=== PATIENT | female | born 2000 | race Caucasian/White ===

== ENCOUNTER 2024-11-29 21:32 | Emergency (ER) | payer MEDICAID, SELFPAY ==
--- NOTE | ~2024-11-29 | US_ITS ---
EXAMINATION: US OB <=14 wk fetus w TV DATE: 11/29/2024 23:49 CDT INDICATION: Cramping and bleeding COMPARISON: None TECHNIQUE: Real-time transabdominal and transvaginal obstetric ultrasound. FINDINGS: 2 para 0 Estimated date of delivery by last menstrual period is 06/29/2025 The uterus measures 8.8 x 4.5 x 7.1 cm. The uterus is retroverted A gestational sac is identified within the uterus. A small subchorionic hemorrhage is identified measuring 8.2 x 3.1 mm. A pole is identified, with a crown-rump length that measures 2.1 cm, corresponding to an approx imate gestational age of 8 weeks and 5 days. cardiac activity is identified at a rate of 185 bpm. The right ovary measures 2.4 x 1.5 x 2.5 cm. Despite prolonged interrogation, the left ovary was not visualized. Free fluid (likely blood) is identified within the lower uterine segment/cervical canal which appears minimally dilated. Estimated date of delivery by ultrasound is 07/07/2025 IMPRESSION: Single intrauterine gestation with an approximate gestational age of 8 weeks and 4 days, with c ardiac activity identified. Free fluid is identified within the cervix, which appears minimally dilated. Reviewed, dictated and finalized at location A. IMPRESSION: Single intrauterine gestation with an approximate gestational age of 8 weeks an d 4 days, with cardiac activity identified. Free fluid is identified within the cervix, which appears minimally dilated.
[2024-11-29 21:44] VITALS: BP 122/80; PULSE 86; RESP 14; TEMP 36.9; O2SAT 100
--- NOTE | 2024-11-29 22:51 | ED_ITS ---
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 She reports she is her last menstrual period was September 22, 2024. Patient was last year and had a miscarriage in June 2024. She reports she has an OBGYN and has had 1 appointment with them. Patient denies any clots, recent fevers, back pain. She endorses blood on the toilet paper when she wipes. Patient denies any other pertinent medical history related to this ER visit. Related Data Allergies Allergy/AdvReac Type Severity Reaction Status Date / Time Latex, Natural Rubber Allergy Intermediate Itching Verified 11/29/24 21:47 Review of Systems 2 Review of Systems: All systems reviewed & are unremarkable except as noted in HPI and below Exam 2 Narrative: GENERAL: Well appearing, well-nourished, non-toxic, in no acute distress. HEAD: Normocephalic, atraumatic. NECK: Supple. No adenopathy, no masses. RESPIRATORY: Airway patent, respirations nonlabored. Clear to auscultation bilaterally, no rales, rhonchi, wheezing. CARDIOVASCULAR: Regular rate and rhythm without murmurs, rubs, or gallops. Peripheral pulses 2+ and equal bilaterally. ABDOMINAL: Soft, nontender, nondistended, no hepatosplenomegaly. Normoactive BS. MUSCULOSKELETAL: Moves all extremities. Strength/ROM intact without gross deformities. SKIN: Warm, dry, normal color. No rashes. NEURO: A&O X3. Speech clear. Cranial nerves II-XII intact. No ataxic movements. PSYCHIATRIC: Appropriate mood and affect. Normal interaction. Course Vital Signs Vital signs: Vital Signs Temperature 36.9 C 11/29/24 21:44 Pulse Rate 86 11/29/24 21:44 Respiratory Rate 14 11/29/24 21:44 Blood Pressure 122/80 11/29/24 21:44 Pulse Oximetry 100 11/29/24 21:44 Oxygen Delivery Room Air 11/29/24 21:44 Temperature 36.9 C 11/29/24 21:44 Pulse Rate 79 11/29/24 23:56 Respiratory Rate 16 11/29/24 23:56 Blood Pressure 131/74 11/29/24 23:56 Pulse Oximetry 99 11/29/24 23:56 Oxygen Delivery Room Air 11/29/24 21:44 MDM - Female Genitourinary MDM Narrative Medical decision making narrative: Patient is a a 24-year-old female who presents to the ER with cramping and light bleeding for the past 2 hours. She reports she is her last menstrual period was September 22, 2024. Patient was last year and had a miscarriage in June 2024. She reports she has an OBGYN and has had 1 appointment with them. Patient denies any clots, recent fevers, back pain. She endorses blood on the toilet paper when she wipes. Patient denies any other pertinent medical history related to this ER visit. Labs Ordered: CBC, CMP, beta HCG, UA Imaging Ordered: Ultrasound Ob < 14 weeks Medications Ordered: 1L normal saline IV bolus, Macrobid PO Results: Patient's urinalysis indicates 1+ blood, 2+ leukocytes, 11-20 white blood cell count Diagnosis: Mild dehydration, urinary tract infection Patient Education/Shared MDM: Results of urinalysis shared with patient. Patient strongly advised to maintain hydration status upon discharge and follow- up with her OBGYN as soon as possible. She will be discharged home with a prescription for Macrobid. Strict return precautions provided. Patient verbalized understanding is in agreement with plan. Vital signs stable at time of discharge. All questions answered. Differential Diagnosis Differential diagnosis: Likely urinary tract infection, vaginitis and other (spontaneous ) Lab Data Attestation: I reviewed the patient's lab results. 11/29/24 23:07 11/29/24 23:07 Labs: Lab Results 11/29/24 11/29/24 Range/Units 23:07 23:14 WBC 10.1 H (4.5-10.0) K/mm3 RBC 4.62 (4.2-5.4) M/mm3 Hgb 13.2 (12.0-15.0) g/dL Hct 38.9 (37.0-47.0) % MCV 84.2 (80-100) fl MCH 28.6 (26-34) pg MCHC 33.9 (32-36) g/dl RDW 13.5 (11.5-14.5) % Plt Count 205 (150-375) k/mm3 MPV 8.9 (7.4-10.4) fl Immature Gran % (Auto) 0.4 (0-0.5) % Neut % (Auto) 64.0 (45.5-73.1) % Lymph % (Auto) 26.0 (18.3-44.2) % [place] % (Auto) 7.9 (2.6-8.5) % Eos % (Auto) 1.3 (0-4.4) % Baso % (Auto) 0.4 (0.2-1.2) % Lymph # (Auto) 2.63 (0.9-3.2) K/mm3 [place] # (Auto) 0.8 H (0.1-0.6) K/mm3 Eos # (Auto) 0.1 (0-0.3) K/mm3 Baso # (Auto) 0.0 (0.0-0.1) K/mm3 Abs Immat Gran (auto) 0.04 H (0.00-0.031) K/mm3 Absolute Neuts (auto) 6.5 (1.3-6.7) K/mm3 Absolute Nucleated RBC 0.000 (0.0-0.012) K/mm3 Nucleated RBC % 0.0 (0.0-0.2) % Sodium 137 (137-145) mmol/L Potassium 4.0 (3.4-5.0) mmol/L Chloride 104 (98-107) mmol/L Carbon Dioxide 23 (22-30) mmol/L Anion Gap 10 (4-12) mmol/L BUN 9 (7-17) mg/dL Creatinine 0.62 L (0.7-1.0) mg/dL Estim Creat Clear Calc 149 ml/min Estimated GFR > 60 (59 - ) Glucose 101 (65-110) mg/dL Calcium 9.6 (8.4-10.2) mg/dL Total Bilirubin 0.1 L (0.2-1.3) mg/dL AST 25 (14-36) U/L ALT 28 (6-35) U/L Alkaline Phosphatase 45 (38-126) U/L Total Protein 8.0 (6.3-8.2) g/dL Albumin 4.5 (3.5-5.1) g/dL Beta HCG, Quant 94247.00 mIU/ML Urine Color Yellow (Yellow) Urine Appearance Clear (Clear) Urine pH 6.0 (5.0-9.0) Ur Specific Gilbert 1.020 (1.001-1.035) Urine Protein Negative (Negative) mg/dL Urine Glucose (UA) Negative (Negative) mg/dL Urine Ketones Negative (Negative) mg/dL Ur Blood (Man) 1+ H (Negative) Urine Nitrate Negative (Negative) Urine Bilirubin Negative (Negative) Urine Urobilinogen 0.2 (<2.0) mg/dL Leukocyte Esterase Rfl 2+ H (Negative) KATELYN/UL Urine RBC 0-2 (0-2) /hpf Urine WBC 11-20 H (0-3) /hpf Ur Squamous Epith Cells None seen (Few) /hpf Urine Bacteria Rare /hpf Urine Casts 0-2 Imaging Data Attestation: I personally reviewed and interpreted this imaging study as follows: Radiologist's impression: Impressions Obstetrics Ultrasound 11/29/24 23:49 IMPRESSION: Single intrauterine gestation with an approximate gestational age of 8 weeks and 4 days, with cardiac activity identified. Free fluid is identified within the cervix, which appears minimally dilated. Discharge Plan Discharge Clinical Impression: UTI (urinary tract infection) in in first trimester, Vaginal bleeding affecting early , Vaginal bleeding in Patient Disposition: Home, Self-Care Condition: Stable Instructions: Antibiotic Form, Urinary Tract Infection in (ED) Additional Instructions: Please return to the ER with any worsening symptoms. Follow-up with your OBGYN as soon as possible. Take all medications as prescribed, including regularly scheduled medications. Complete your full course of antibiotics. Patient Language: Syriac Prescriptions: New nitrofurantoin monohyd/m-cryst [Macrobid] 100 mg capsule 100 mg PO Q12H 5 Days Qty: 10 0RF Rx Instructions: must administer with a meal/food Follow-up/Referrals: Evan Yost MD [Primary Care Provider] - Time of Disposition: 00:49
[2024-11-29 23:12] LABS: Basophils Percent Auto 0.4 % (0.2-1.2); Eosinophils Absolute Auto 0.1 K/mm3 (0-0.3); Eosinophils Percent Auto 1.3 % (0-4.4); Hematocrit 38.9 % (37.0-47.0); Hemoglobin 13.2 g/dL (12.0-15.0); Immature Granulocyte Absolute 0.04 K/mm3 (0.00-0.031); Immature Granulocyte Percent A 0.4 % (0-0.5); Lymphocytes Absolute Auto 2.63 K/mm3 (0.9-3.2); Mean Corpuscular HGB Conc 33.9 g/dl (32-36); Mean Corpuscular Hemoglobin 28.6 pg (26-34); Mean Corpuscular Volume 84.2 fl (80-100); Mean Platelet Volume 8.9 fl (7.4-10.4); Monocytes Absolute Auto 0.8 K/mm3 (0.1-0.6); Monocytes Percent Auto 7.9 % (2.6-8.5); Neutrophils Absolute Auto 6.5 K/mm3 (1.3-6.7); Platelet Count Result 205 k/mm3 (150-375); Red Blood Count 4.62 M/mm3 (4.2-5.4); Red Cell Distribution Width 13.5 % (11.5-14.5); White Blood Count 10.1 K/mm3 (4.5-10.0)
[2024-11-29] MEDS: SODIUM CHLORIDE 0.9% IV 1,000 ML 999 ML IV CONT (23:16)
[2024-11-29 23:22] LABS: Alanine Aminotransferase 28 U/L (6-35); Albumin Level 4.5 g/dL (3.5-5.1); Alkaline Phosphatase 45 U/L (38-126); Anion Gap 10 mmol/L (4-12); Aspartate Amino Transferase 25 U/L (14-36); Bilirubin,Total 0.1 mg/dL (0.2-1.3); Blood Urea Nitrogen 9 mg/dL (7-17); Calcium 9.6 mg/dL (8.4-10.2); Carbon Dioxide 23 mmol/L (22-30); Chloride 104 mmol/L (98-107); Estimated CRCL calculation 149 ml/min; Estimated Glomerular Filt Rate > 60; Glucose 101 mg/dL (65-110); Sodium 137 mmol/L (137-145)
[2024-11-29 23:28] LABS: Add Urine Microscopic? YES; Appearance Urine Clear (Clear); Bacteria Urine Rare /hpf; Bilirubin Urine Negative (Negative); Blood Urine 1+ (Negative); Color Urine Yellow (Yellow); Glucose Urine UA Negative (Negative); Ketones Urine Negative (Negative); Leukocyte Esterase Ur 2+ LEU/UL (Negative); Nitrate Urine Negative (Negative); Non Pathogenic Casts 0-2; Protein Urine Negative (Negative); RBC Urine 0-2 /hpf (0-2); Squamous Epithelial Cell Urine None Seen /hpf (Few); Urobilinogen Urine 0.2 mg/dL (<2.0)
[2024-11-29 23:56] VITALS: BP 131/74; PULSE 79; RESP 16; O2SAT 99
[2024-11-30] MEDS: NITROFURANTOIN MONOHYD MACROCR 100 MG CAP PO (00:04)
--- OUTSIDE RECORDS SUMMARY | 2024-11-30 00:13 | XMS_ITS | Data Portability ---
Author Organization [facility] [place] Address [address] [place] [address] Assessment No assessment recorded. Plan of Treatment Reminders Order Date Submit Date Provider Last Modified By Organization Details Last Modified Time Details Appointments U/S OB FIRST LOOK 2024 08:30A M ULTRASOUND Not available Not available Not available OB NEW 2024 09:00A M YOLANDE CONNORS MD Not available Not available Not available Lab CT + NG + TV, RNA, unspeci fied specime n 2024 025 [facility] (Lab), [address], [place], [address], 11/20/2024 13:39:51 Referral None recorde d. Procedures None recorde d. Surgeries None recorde d. Imaging US, obstetr ic, transva ginal 2024 025 [email or web address] [place], [facility] [address], [place], [address], 11/19/2024 22:06:14 Medication Orders None recorde d. Patient TargetsNo targets recorded. Patient InstructionsNo instructions recorded. Reason for Referral None Reported. Results Created Date Observation Date Name Description Value Unit Range Abnormal Flag Note LastModifiedBy Organization Detail LastModifiedTime 11/20/1911/19/2024 CT/GC AND TRICH OMONA S VAGIN GERRY (RRNA ), URINE chlamydia trachomatis, PCR Negati ve negati ve Not Available [facility] (Lab) [address], [place], [address], 11/20/2024 13:39:51 11/20/19 25 11/19/2024 CT/GC AND TRICH OMONA S VAGIN GERRY (RRNA ), URINE neisseria gonorrhoeae, PCR Negati ve negati ve Not Available [facility] (Lab) [address] [place], [address], 11/20/2024 13:39:51 11/20/19 25 11/19/2024 CT/GC AND TRICH OMONA S VAGIN GERRY (RRNA ), URINE trichomonas vaginalis ribosomal RNA (rrna) Negati ve negati ve Not Available [facility] (Lab) [address] [place], [address], 11/20/2024 13:39:51 11/20/19 25 11/19/2024 US, obste tric, trans vagin al No observ ation record ed. [email or web address], [place], [address], 11/19/2024 17:59:53 11/20/1911/19/2024 US, obste tric, trans vagin al No observ ation record ed. [email or web address], [place], [address], 11/19/2024 21:53:26 Result Notes None recorded. Procedures Surgical History Date Name Laterality Status Provider Name and Address Organization Details Recorded Time 07/03/2024 Date of Last Pap Smear completed Yoli Mckeon [facility] 11/19/2024 13:53:21 Imaging Results Imaging Date Name Status LastModified by Organization Details LastModified Time 11/19/2024 US, obstetric, transvaginal completed [email or web address] [place] [address], [place], [address], 11/19/2024 17:59:53 11/19/2024 US, obstetric, transvaginal completed [email or web address], [place], [address], 11/19/2024 21:53:26 Procedure Notes None recorded. Medical Equipment None Reported. Allergies Allergen ID Allergen Name Allergen Category Reaction Reaction Severity Criticality Documentation Date Start Date Code Code System Note Provider Name and Address Organization Details Recorded Time 99616 latex environme nt,medica tion Not available Not available Not available 11/19/2024 35993 91 RxNorm [facility]33 Medications Name Sig Start Date Stop Date Status Note LastModified by Organization Details LastModified Time cephalexin 500 mg capsule TAKE 1 CAPSULE BY MOUTH TWICE DAILY FOR 7 DAYS FOR UTI 11/19 completed Not Available Not Available Not Available 28 mg iron-800 mcg tablet TAKE 1 TABLET BY MOUTH EVERY NIGHT FOR 11/19 completed Not Available Not Available Not Available WesTab Plus 27 mg iron-1 mg tablet TAKE 1 TABLET BY MOUTH DAILY 11/19 completed Not Available Not Available Not Available Vitals Date Recorded Body weight Body mass index (BMI) Body height Systolic blood pressure Diastolic blood pressure Provider Name and Address Organization Details Last Updated DateTime 11/19/2024 809326.1 7 g 41.2 kg/m2 162.56 cm 124 mm[Hg] 75 mm[Hg] Yoil Mckeon [facility] 14:39:19 Social History Question Answer Notes LastModified by Organizat ion Details LastModified Time Tobacco Smoking Status Never Smoker [facility] 11/19/2024 14:41:49 Are You Blind Or Do You Have Difficulty Seeing? No [email or web address] Information n ot available 11/19/2024 In The 14 Days Before Symptom Onset, Have You Had Close Contact With A Laboratory-confirm ed COVID-19 While That Case Was Ill? No [email or web address] Information n ot available 11/19/2024 In The 14 Days Before Symptom Onset, Have You Had Close Contact With A Person Who Is Under Investigation For COVID-19 While That Person Was Ill? No Information not available 11/19/2024 Have You Been To An Area Known To Be High Risk For COVID-19? No [email or web address] Information not available 11/19/2024 Are You Deaf Or Do You Have Serious Difficulty Hearing? No [email or web address] Information not available 11/19/2024 Do You Use Your Seat Belt Or Car Seat Routinely? Yes [email or web address] Information not available 11/19/2024 Are You Sexually Active? Yes Information not available 11/19/2024 Do You Have Smoke And Carbon Monoxide Detectors In Your Home? Yes Information not available 11/19/2024 Do You Use Any Illicit Or Recreational Drugs? No [email or web address] Information not available 11/19/2024 Do You Use Sunscreen Routinely? Yes [email or web address] Information not available 11/19/2024 Sex: Unknown Functional Status Question Answer Note LastModified by Organizat ion Details LastModified Time Do you have difficulty walking or climbing stairs? No Information not available 11/19/2024 Are you able to walk? YESWOREST [email or web address] Information not available 11/19/2024 Are you able to care for yourself? Yes Information not available 11/19/2024 Do you have difficulty dressing or bathing? No [email or web address] Information not available 11/19/2024 Mental Status None recorded. Family History Relationship Description Onset Age of this Age Resolved Age Notes LastModified by Organization Details LastModified Time Maternal Grandmother Heart disease [email or web address] Not available 2024 13:54:29 Father Diabetes mellitus Not available 2024 13:54:46 Father Hypercholest erolemia [email or web address] Not available 2024 13:55:18 Father Hypertensive disorder [email or web address] Not available 2024 13:55:35 Brother Hypercholest erolemia Not available 2024 13:55:18 Brother Hypertensive disorder [email or web address] Not available 2024 13:55:35 Mother Hypercholest erolemia Not available 2024 13:55:18 Mother Hypertensive disorder [email or web address] Not available 2024 13:55:35 Mother Disorder of thyroid gland [email or web address] Not available 2024 13:55:55 Medical History No medical history recorded. Gynecological History Statement/Question Response Abnormal Pap N Flow Moderate Date of LMP 09/22/2024 Was last menstrual period normal Y STIs/STDs N HPV Vaccine Y Duration of Flow (days) 5 Are cycles usually normal Y Frequency of Cycle (Q days) 28 Sexually Active? Y Menses Monthly Y Age of first menstrual cycle 13 Date of Last Pap Smear 07/03/2024 Sexual Problems? N LMP Approximate Obstetrics History GPAL:G 1 P 0 0 1 0 Type Value Spontaneous 1 Total 1 Past Encounters Encounter ID Performer Location Encounter Start Date Encounter Closed Date Diagnosis/Indication Diagnosis SNOMED-CT Code Diagnosis ICD10 Code Diagnosis Note [id number] Opal Miranda [place] [address] [address] 11/19/2024 13:30:15 11/19/2024 14:37:29 Uterine size for dates discrepancy 221635606 O26.841 Z3A.01 [id number] YOLANDE CONNORS MD [place] [address] [address] 11/19/2024 13:34:02 11/19/2024 15:47:57 Routine care 736160513 Z34.91 test positive 925337053 Z32.01 1. Exam today within normal limits.2. Ultrasound today confirms GA and viability. EDC . JEFFERSON/Jose a testing done: will f/u as indicated. 4. ACOG guidelines and plan of care for reviewed with patient. All questions answered.5 . Return to office at 12 weeks for new OB visit6. Will need new OB labs at next visit.7. Genetic screening: desires. Vanishing twin syndrome 079160651 O31.10X0 - possible empty second gestationa l sac seen on US today- discussed possibilit y of vanishing twin; no FP seen- patient voices understand ing Health Concerns Section Related Observation LastModified by Organization Detai ls LastModified Time None Recorded Concern Status LastModified by Organization Details LastModified Time None Recorded Advance Directives Directive None Recorded Payers Encounter Date Sequence Insurance Name Policy Number Policy Langley Covered Member ID Langley Member ID Guarantor Name 11/19/2024 1 [place] [employer] Jaquelin Parker [id number] Jaquelin Parker 11/19/2024 1 [place] [employer] Jaquelin Parker [id number] Jaquelin Parker Notes Date Note Type Note Provider Name and Address Organization Details Recorded Time 11/19/2024 text/html Presents to the office today to confirm . Patient denies any problems up to this point with her . Patient denies cramping or vaginal bleeding. No nausea. No PMH/PSH. Hx of miscarriage x1 at 12 weeks, passed spontaneously. Patient is engaged to Ariel. Lives with mom and dogs, cats, lizards and ferrets. Discussed litter box hygiene. Denies tobacco/EtOH/illi cits. YOLANDE CONNORS MD [address], [place], [address], [facility] 11/19/2024 15:44:12 OBGyn Episode Ob Episode Information Episode Created Date Number of Fetuses Patient Bloodtype Patient rh Status Prepregnancy Weight lbs Domestic Partner Domestic Partner Phone Father Name Patent Chemist Status 11/20/19 25 1 CLOSED Fetus Data First Name Last Name Admitted to NICU Weight (g) Sex Living Outcome Pediatric Complications Fetus ID Race Codes Race Delivery Type , Spontane ous [id number] Serge Calculation Initial Serge Date Initial Exam Date Initial Exam Provider Initial Ultrasound Date Last Menstrual Period Date Ultra Sound Weeks Gestation 0 Eighteen To Twenty Week Serge Update Ultra Sound Date Fundal Height At Umbil Quickening Date Ultra Sound Latest Weeks Gestation Final Serge Confirmed By Final Serge Confirmed Date Final Serge Date Ultra Sound Latest Days Gestation 0 0 Menstrual History Last Menstrual Date Menses Monthly On Bcp Conception Prior Menses Frequency Hcg Plus Date Menarche Onset Age Delivery Information Delivery Date Delivery Type Labor Anesthesia Weeks Gestation Incision Type Labor Labor Length Hrs Delivered By Post Complications Tubal Sterilization Discharge Date Comments 4 Discharge Information Feeding Method Contraceptive Method Maternal HG B and HCT Levels
--- OUTSIDE RECORDS SUMMARY | 2024-11-30 00:13 | XMS_ITS | Referral Summary ---
Author Organization [facility] Address [address] [place] [address] Care Team Providers Care Marble Setter Name Role Phone Miscellaneous, Not In File Primary Care Provider Unavailable Allergies No known active allergies Medications No known medications Social History Tobacco Use Types Packs/Day Years Used Date Smoking Tobacco: Never Tobacco Cessation:Counseling Given: Not Answered Personal Safety Answer Date Recorded Have you ever been in or are you currently in a harmful physical or emotional relationship or is someone making you feel afraid or unsafe? Denies 07/05/2024 Estimated Date of Delivery Comme nts Yes 01/20/2025 Sex and Gender Information Value Date Recorded Sex Assigned at Not on file Legal Sex Female 9:45 PM CDT Gender Identity Not on file Sexual Orientation Not on file Last Filed Vital Signs Vital Sign Reading Time Taken Comments Blood Pressure 109/70 07/05/2024 7:20 AM CDT Pulse 82 07/05/2024 7:20 AM CDT Temperature 36.1 C (96.9 F) 07/05/2024 7:20 AM CDT Respiratory Rate 18 07/05/2024 7:20 AM CDT Oxygen Saturation 100% 07/05/2024 7:20 AM CDT Inhaled Oxygen Concentration - - Weight 108 kg (238 lb) 07/05/2024 7:20 AM CDT Height 172.7 cm (5' 8 ) 07/05/2024 7:20 AM CDT Body Mass Index 36.19 07/05/2024 7:20 AM CDT Plan of Treatment Not on file Care Teams Marble Setter Relationship Specialty Start Date End Date Miscellaneous, Not In File PCP - General 07/04/24
--- OUTSIDE RECORDS SUMMARY | 2024-11-30 00:13 | XMS_ITS | Data Portability ---
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 Jaquelin has long hx of irregular periods and was seen approximately 3 months prior for evaluation. OCP was started with no other reported side effects other than spotting. Spotting with no regular pattern. Additionally on visit today patient's blood pressure elevated x 2. - previous labs reviewed; will add testerone, a1c, CMP, CBC and lipid - anticipatory guidance and education provided - recommend diet modification and increased physical activity - will continue to monitor spotting as patient has only had 3 months of current OCP; will reassess at month 6 approx - follow-up pending labs, in 2-3 months or prn [email or web address] Not available 09/15/2021 09:54:29 Plan of Treatment Reminders Order Date Submit Date Provider Last Modified By Organization Details Last Modified Time Details Appointments None recorded. Lab panel 2023 024 [facility], [address] [facility] [address], [place], [address], 14:37:45 varicella zoster virus IgG Ab, QL, IA, serum 2023 024 [facility], [address] [facility], [facility] [address], [place], [address], 4 14:37:50 vitamin D, 25-hydrox y, total, serum 2023 024 [facility], [address] [place] [address], [facility], [place], [address], 4 14:37:49 cytology report, thin prep, smear or scraping, cervical or vaginal 2023 024 [facility], [address] [place] [address], [facility] [address], [place], [address], 4 18:35:51 CBC 2021 022 [facility], [address] [place] [address], [facility] [address], [place], [address], 2 20:35:57 lipid panel, serum 2021 022 [facility], [address] [place] [address], [facility] [address], [place], [address], 2 20:35:57 CMP, serum or plasma 2021 022 [facility], [address] [place] [address], [facility], [place], [address], 2 20:35:56 testoster one, free + total, serum 2021 022 [facility], [address] [place] [address], [facility], [place], [address], 2 20:35:58 prolactin , serum 2020 021 [facility], [address] [place] [address], [facility] [address], [place], [address], 1 08:38:23 TSH, ultra-sen sitive, serum 2020 021 [facility], [address] [place] [address], [facility] [address], [place], [address], 1 08:38:22 FSH (follicle -stimulat ing hormone), serum 2020 021 [place], [address] [facility] [address], [place], [address], 1 08:38:23 Referral pharmacis t referral - OB patient - [facility] program 2023 024 Claudette Martin MD, 4 [facility] , [address], [place], [address], 4 18:00:26 Procedures None recorded. Surgeries None recorded. Imaging None recorded. Medication Orders Twirla 120 mcg-30 mcg/24 hr transderm al patch 2023 [facility][id number], [address], [place], [place], [id number], 4 14:29:55 M- Plus 27 mg iron-1 mg tablet 2023 024 [facility] #[id number], [address], [place], [place], [id number], 4 14:29:54 Junel FE 09/30 (28) 1 mg-20 mcg (21)/75 mg (7) tablet 2020 021 [facility] #[id number], [address], [place], [place], [id number], 4 11:04:29 Patient TargetsNo targets recorded. Patient InstructionsNo instructions recorded. Reason for Referral Pharmacist Referral for Rout ine care OB patient - [facility] program Referring Physician: Paulina King, Family Medicine, Encounter Date: 07/03/2024 Results Created Date Observation Date Name Description Value Unit Range Abnormal Flag Note LastModifiedBy Organization Detail LastModifiedTime 05/27/20 21 05/28/2021 TSH TSH 2.330 uIU/m L 0.450- 4.500 Not Available [facility] ([facility]) [address] [place], [address], 05/28/2021 08:38:22 05/27/20 21 05/28/2021 FSH FSH 7.9 mIU/m L Adult Femal e: Folli cular phase 3.5 - 12.5 Ovula tion phase 4.7 - 21.5 Lutea l phase 1.7 - 7.7 Postm enopa usal 25.8 - 134.8 Not Available [facility] ([facility]) [address] [place], [address], 05/28/2021 08:38:23 05/27/20 21 05/28/2021 PROLA CTIN prolactin 7.4 NG/mL 4.8-23 .3 Not Available [facility] ([facility]) [address] [place], [address], 05/28/2021 08:38:23 09/15/19 22 09/16/2021 COMP. METAB OLIC PANEL (14) glucose 110 mg/dL 65-99 above high normal Not Available [facility] ([facility]) [address] [place], [address], 09/17/2021 20:35:56 09/15/19 22 09/16/2021 COMP. METAB OLIC PANEL (14) BUN 8 mg/dL 6-20 Not Available [facility] ([facility]) [address] [place], [address], 09/17/2021 20:35:56 09/15/19 22 09/16/2021 COMP. METAB OLIC PANEL (14) creatinine 0.71 mg/dL 0.57-1 .00 Not Available [facility] ([facility]) [address] [place], [address], 09/17/2021 20:35:56 09/15/19 22 09/16/2021 COMP. METAB OLIC PANEL (14) eGFR if nonafricn AM 123 mL/mi n/1.7 3 >59 Not Available [facility] ([facility]) [address] [facility], [place], [address], 09/17/2021 20:35:56 09/15/19 22 09/16/2021 COMP. METAB OLIC PANEL (14) eGFR if africn AM 142 mL/mi n/1.7 3 >59 In accor dance with recom menda tions from the NKF-A SN Task force , [facility] is in the proce ss of updat ing its eGFR calcu latio n to the 2020 CKD-E PI creat inine equat ion that estim ates kidne y funct ion witho ut a race varia ble. Not Available [facility] ([facility]) [address] [facility], [place], [address], 09/17/2021 20:35:56 09/15/19 22 09/16/2021 COMP. METAB OLIC PANEL (14) BUN/creatini ne ratio 11 9-23 Not Available [facility] ([facility]) [address] [facility], [place], [address], 09/17/2021 20:35:56 09/15/19 22 09/16/2021 COMP. METAB OLIC PANEL (14) sodium 141 mmol/ L 134-14 4 Not Available [facility] ([facility]) [address] [place], [address], 09/17/2021 20:35:56 09/15/19 22 09/16/2021 COMP. METAB OLIC PANEL (14) potassium 4.3 mmol/ L 3.5-5. 2 Not Available [facility] ([facility]) [address] [place], [address], 09/17/2021 20:35:56 09/15/19 22 09/16/2021 COMP. METAB OLIC PANEL (14) chloride 103 mmol/ L 96-106 Not Available [facility] ([facility] [facility]) [address] [facility], [place], [address], 09/17/2021 20:35:56 09/15/19 22 09/16/2021 COMP. METAB OLIC PANEL (14) carbon dioxide, total 21 mmol/ L 20-29 Not Available [facility] ([facility]) [address] [facility], [place], [address], 09/17/2021 20:35:56 09/15/19 22 09/16/2021 COMP. METAB OLIC PANEL (14) calcium 9.7 mg/dL 8.7-10 .2 Not Available [facility] ([facility]) [address] [facility], [place], [address], 09/17/2021 20:35:56 09/15/19 22 09/16/2021 COMP. METAB OLIC PANEL (14) protein, total 7.5 g/dL 6.0-8. 5 Not Available [facility] ([facility]) [address] [facility], [place], [address], 09/17/2021 20:35:56 09/15/19 22 09/16/2021 COMP. METAB OLIC PANEL (14) albumin 4.8 g/dL 3.9-5. 0 Not Available [facility] ([facility]) [address] [facility] [place] [place], [address], 09/17/2021 20:35:56 09/15/19 22 09/16/2021 COMP. METAB OLIC PANEL (14) globulin, total 2.7 g/dL 1.5-4. 5 Not Available [facility] ([facility]) [address] [facility] [place] [place], [address], 09/17/2021 20:35:56 09/15/19 22 09/16/2021 COMP. METAB OLIC PANEL (14) A/G ratio 1.8 1.2-2. 2 Not Available [facility] ([facility]) [address] [facility], [place], [address], 09/17/2021 20:35:56 09/15/19 22 09/16/2021 COMP. METAB OLIC PANEL (14) bilirubin, total <0.2 mg/dL 0.0-1. 2 Not Available [facility] ([facility]) [address], [place], [address], 09/17/2021 20:35:56 09/15/19 22 09/16/2021 COMP. METAB OLIC PANEL (14) alkaline phosphatase 51 IU/L 42-106 Ple ase note refer ence inter sunil trinh e Not Available [facility] ([facility]) [address] [facility], [place], [address], 09/17/2021 20:35:56 09/15/19 22 09/16/2021 COMP. METAB OLIC PANEL (14) AST (SGOT) 51 IU/L 0-40 above high normal Not Available [facility] ([facility]) [address] [facility], [place], [address], 09/17/2021 20:35:56 09/15/19 22 09/16/2021 COMP. METAB OLIC PANEL (14) ALT (SGPT) 75 IU/L 0-32 above high normal Not Available [facility] ([facility]) [address] [facility], [place], [address], 09/17/2021 20:35:56 09/15/19 22 09/16/2021 CBC, PLATE LET, NO DIFFE RENTI AL WBC 6.1 x10e3 /uL 3.4-10 .8 Not Available [facility] ([facility]) [address] [facility], [place], [address], 09/17/2021 20:35:56 09/15/19 22 09/16/2021 CBC, PLATE LET, NO DIFFE RENTI AL RBC 5.21 x10e6 /uL 3.77-5 .28 Not Available [facility] ([facility]) [address] [facility], [place], [address], 09/17/2021 20:35:56 09/15/19 22 09/16/2021 CBC, PLATE LET, NO DIFFE RENTI AL hemoglobin 14.4 g/dL 11.1-1 5.9 Not Available [facility] ([facility]) [address] [facility], [place], [address], 09/17/2021 20:35:56 09/15/19 22 09/16/2021 CBC, PLATE LET, NO DIFFE RENTI AL hematocrit 43.9 % 34.0-4 6.6 Not Available [facility] ([facility]) [address] [facility], [place], [address], 09/17/2021 20:35:56 09/15/19 22 09/16/2021 CBC, PLATE LET, NO DIFFE RENTI AL MCV 84 fL 79-97 Not Available [facility] ([facility]) [address] [facility], [place], [address], 09/17/2021 20:35:56 09/15/19 22 09/16/2021 CBC, PLATE LET, NO DIFFE RENTI AL MCH 27.6 pg 26.6-3 3.0 Not Available [facility] ([facility]) [address] [facility], [place], [address], 09/17/2021 20:35:56 09/15/19 22 09/16/2021 CBC, PLATE LET, NO DIFFE RENTI AL MCHC 32.8 g/dL 31.5-3 5.7 Not Available [facility] ([facility]) [address] [place], [address], 09/17/2021 20:35:56 09/15/19 22 09/16/2021 CBC, PLATE LET, NO DIFFE RENTI AL RDW 12.4 % 11.7-1 5.4 Not Available [facility] ([facility]) [address] [place], [address], 09/17/2021 20:35:56 09/15/19 22 09/16/2021 CBC, PLATE LET, NO DIFFE RENTI AL platelets 271 x10e3 /uL 150-45 0 Not Available [facility] ([facility]) [address] [facility], [place], [address], 09/17/2021 20:35:56 09/15/19 22 09/16/2021 CBC, PLATE LET, NO RASTA BEAUCHAMP AL NRBC CRUDE TESTER Not Available [facility] ([facility]) [address] [facility], [place], [address], 09/17/2021 20:35:56 09/15/19 22 09/16/2021 LIPID PANEL cholesterol, total 155 mg/dL 100-19 9 Not Available [facility] ([facility]) [address] [facility], [place], [address], 09/17/2021 20:35:57 09/15/19 22 09/16/2021 LIPID PANEL triglyceride s 188 mg/dL 0-149 above high normal Not Available [facility] ([facility]) [address] [facility], [place], [address], 09/17/2021 20:35:57 09/15/19 22 09/16/2021 LIPID PANEL HDL cholesterol 36 mg/dL >39 below low normal Not Available [facility] ([facility]) [address] [facility], [place], [address], 09/17/2021 20:35:57 09/15/19 22 09/16/2021 LIPID PANEL VLDL cholesterol juanito 32 mg/dL 5-40 Not Available [facility] ([facility]) [address] [facility], [place], [address], 09/17/2021 20:35:57 09/15/19 22 09/16/2021 LIPID PANEL LDL chol calc ([facility]) 87 mg/dL 0-99 Not Available [facility] ([facility]) [address] [place], [address], 09/17/2021 20:35:57 09/15/19 22 09/16/2021 LIPID PANEL comment: CRUDE TESTER Not Available [facility] ([facility]) [address], [place], [address], 09/17/2021 20:35:57 09/15/19 22 09/16/2021 TESTO STERO NE,FR EE AND TOTAL testosterone 23 NG/dL - Not Available [facility] ([facility]) [address] [place], [address], 09/17/2021 20:35:58 09/15/19 22 09/17/2021 TESTO STERO NE,FR EE AND TOTAL free testosterone (direct) 2.0 pg/mL 0.0-4. 2 Not Available [facility] ([facility]) [address] [facility], [place], [address], 09/17/2021 20:35:58 09/15/19 22 09/16/2021 HEMOG LOBIN A1C hemoglobin A1C 5.5 % 4.8-5. 6 Predi abete s: 5.7 - 6.4 Diabe magdalena: >6.4 Glyce sanjay contr ol for adult s with diabe magdalena: <7.0 Not Available [facility] ([facility]) [address] [facility], [place], [address], 09/17/2021 20:35:58 07/03/20 24 2024 INTER PRETA TION: interpretati on: Commen t Not infec víctor with HCV unles s early or acute infec tion is suspe cted (whic h may be delay ed in an immun ocomp romis ed indiv idual ), or other evide nce exist s to indic ate HCV infec tion. Not Available [facility] ([facility]) [address] [facility], [place], [address], 07/05/2024 14:37:44 07/03/2007/03/2024 PREGN KULWANT, INITI AL SCREE N WBC 5.9 x10e3 /uL 3.4-10 .8 Not Available [facility] ([facility]) [address] [facility], [place], [address], 07/05/2024 14:37:45 07/03/2007/03/2024 PREGN KULWANT, INITI AL SCREE N RBC 4.71 x10e6 /uL 3.77-5 .28 Not Available [facility] ([facility]) [address] [facility], [place], [address], 07/05/2024 14:37:45 07/03/2007/03/2024 PREGN KULWANT, INITI AL SCREE N hemoglobin 13.2 g/dL 11.1-1 5.9 Not Available [facility] ([facility]) [address] [facility], [place], [address], 07/05/2024 14:37:45 07/03/2007/03/2024 PREGN KULWANT, INITI AL SCREE N hematocrit 41.8 % 34.0-4 6.6 Not Available [facility] ([facility]) [address] [facility], [place], [address], 07/05/2024 14:37:45 07/03/2007/03/2024 PREGN KULWANT, INITI AL SCREE N MCV 89 fL 79-97 Not Available [facility] ([facility]) [address] [place], [address], 07/05/2024 14:37:45 07/03/2007/03/2024 PREGN KULWANT, INITI AL SCREE N MCH 28.0 pg 26.6-3 3.0 Not Available [facility] ([facility]) [address] [facility], [place], [address], 07/05/2024 14:37:45 07/03/2007/03/2024 PREGN KULWANT, INITI AL SCREE N MCHC 31.6 g/dL 31.5-3 5.7 Not Available [facility] ([facility]) [address] [facility], [place], [address], 07/05/2024 14:37:45 07/03/2007/03/2024 PREGN KULWANT, INITI AL SCREE N RDW 13.3 % 11.7-1 5.4 Not Available [facility] ([facility]) [address] [facility], [place], [address], 07/05/2024 14:37:45 07/03/2007/03/2024 PREGN KULWANT, INITI AL SCREE N platelets 189 x10e3 /uL 150-45 0 Not Available [facility] ([facility]) [address] [facility], [place], [address], 07/05/2024 14:37:45 07/03/2007/03/2024 PREGN KULWANT, INITI AL SCREE N neutrophils 60 % notest ab. Not Available [facility] ([facility]) [address] [facility], [place], [address], 07/05/2024 14:37:45 07/03/20 24 07/03/2024 PREGN KULWANT, INITI AL SCREE N lymphs 30 % notest ab. Not Available [facility] ([facility]) [address] [facility], [place], [address], 07/05/2024 14:37:45 07/03/2007/03/2024 PREGN KULWANT, INITI AL SCREE N monocytes 7 % notest ab. Not Available [facility] ([facility]) [address] [place], [address], 07/05/2024 14:37:45 07/03/20 24 07/03/2024 PREGN KULWANT, INITI AL SCREE N eos 2 % notest ab. Not Available [facility] ([facility]) [address] [facility], [place], [address], 07/05/2024 14:37:45 07/03/20 24 07/03/2024 PREGN KULWANT, INITI AL SCREE N basos 1 % notest ab. Not Available [facility] ([facility]) [address] [facility], [place], [address], 07/05/2024 14:37:45 07/03/20 24 07/03/2024 PREGN KULWANT, INITI AL SCREE N neutrophils (absolute) 3.5 x10e3 /uL 1.4-7. 0 Not Available [facility] ([facility]) [address] [facility], [place], [address], 07/05/2024 14:37:45 07/03/20 24 07/03/2024 PREGN KULWANT, INITI AL SCREE N lymphs (absolute) 1.8 x10e3 /uL 0.7-3. 1 Not Available [facility] ([facility]) [address] [facility], [place], [address], 07/05/2024 14:37:45 07/03/20 24 07/03/2024 PREGN KULWANT, INITI AL SCREE N monocytes(ab solute) 0.4 x10e3 /uL 0.1-0. 9 Not Available [facility] ([facility]) [address] [place], [address], 07/05/2024 14:37:45 07/03/20 24 07/03/2024 PREGN KULWANT, INITI AL SCREE N eos (absolute) 0.1 x10e3 /uL 0.0-0. 4 Not Available [facility] ([facility]) [address] [place], [address], 07/05/2024 14:37:45 07/03/20 24 07/03/2024 PREGN KULWANT, INITI AL SCREE N baso (absolute) 0.0 x10e3 /uL 0.0-0. 2 Not Available [facility] ([facility]) [address] [facility], [place], [address], 07/05/2024 14:37:45 07/03/2007/03/2024 PREGN KULWANT, INITI AL SCREE N immature granulocytes 0 % notest ab. Not Available [facility] ([facility]) [address] [facility], [place], [address], 07/05/2024 14:37:45 07/03/2007/03/2024 PREGN KULWANT, INITI AL SCREE N immature grans (abs) 0.0 x10e3 /uL 0.0-0. 1 Not Available [facility] ([facility]) [address] [facility], [place], [address], 07/05/2024 14:37:45 07/03/2007/04/2024 PREGN KULWANT, INITI AL SCREE N HBsAg screen NEGATI VE negati ve Not Available [facility] ([facility]) [address] [place], [address], 07/05/2024 14:37:45 07/03/2007/04/2024 PREGN KULWANT, INITI AL SCREE N HCV Ab NON REACTI VE nonrea ctive Not Available [facility] ([facility]) [address] [place], [address], 07/05/2024 14:37:45 07/03/2007/04/2024 PREGN KULWANT, INITI AL SCREE N RPR NON REACTI VE nonrea ctive Not Available [facility] ([facility]) [address] [place], [address], 07/05/2024 14:37:45 07/03/2007/04/2024 PREGN KULWANT, INITI AL SCREE N rubella antibodies, IgG <0.90 index immune >0.99 below low normal Non-i mmune <0.90 Equiv ocal 0.90 - 0.99 Immun e >0.99 Not Available [facility] ([facility]) [address] [facility], [place], [address], 07/05/2024 14:37:45 07/03/2007/04/2024 PREGN KULWANT, INITI AL SCREE N ABO grouping B Not Available [facility] ([facility]) [address] [facility], [place], [address], 07/05/2024 14:37:45 07/03/2007/04/2024 PREGN KULWANT, INITI AL SCREE N Rh factor POSITI VE Pleas e note: Prior recor ds for this patie nt's ABO / Rh type are not avail able for addit ional verif icati on. Not Available [facility] ([facility]) [address] [facility], [place], [address], 07/05/2024 14:37:45 07/03/2007/04/2024 PREGN KULWANT, INITI AL SCREE N antibody screen NEGATI VE negati ve Not Available [facility] ([facility]) [address] [facility], [place], [address], 07/05/2024 14:37:45 07/03/2007/04/2024 PREGN KULWANT, INITI AL SCREE N HIV Ab/P24 Ag screen NON REACTI VE nonrea ctive HIV-1 /HIV- 2 antib odies and HIV-1 p24 antig en were NOT detec víctor. There is no labor atory evide nce of HIV infec tion. HIV Negat teresita Not Available [facility] ([facility]) [address] [facility], [place], [address], 07/05/2024 14:37:45 07/03/2007/04/2024 PREGN KULWANT, INITI AL SCREE N chlamydia trachomatis, MAXIMINO NEGATI VE negati ve Not Available [facility] ([facility]) [address] [place], [address], 07/05/2024 14:37:45 07/03/2007/04/2024 PREGN KULWANT, INITI AL SCREE N neisseria gonorrhoeae, MAXIMINO NEGATI VE negati ve Not Available [facility] ([facility]) [address] [place], [address], 07/05/2024 14:37:45 07/03/2007/04/2024 PREGN KULWANT, INITI AL SCREE N specific gravity 1.015 1.005- 1.030 Not Available [facility] ([facility]) [address] [place], [address], 07/05/2024 14:37:45 07/03/2007/04/2024 PREGN KULWANT, INITI AL SCREE N pH 6.5 5.0-7. 5 Not Available [facility] ([facility]) [address] [place], [address], 07/05/2024 14:37:45 07/03/2007/04/2024 PREGN KULWANT, INITI AL SCREE N urine-color YELLOW yellow Not Available [facility] ([facility]) [address] [place], [address], 07/05/2024 14:37:45 07/03/2007/04/2024 PREGN KULWANT, INITI AL SCREE N appearance CLEAR clear Not Available [facility] ([facility]) [address] [place], [address], 07/05/2024 14:37:45 07/03/2007/04/2024 PREGN KULWANT, INITI AL SCREE N WBC esterase 2+ negati ve abnormal Not Available [facility] ([facility]) [address] [place], [address], 07/05/2024 14:37:45 07/03/2007/04/2024 PREGN KULWANT, INITI AL SCREE N protein NEGATI VE negati ve/tra ce Not Available [facility] ([facility]) [address] [place], [address], 07/05/2024 14:37:45 07/03/2007/04/2024 PREGN KULWANT, INITI AL SCREE N glucose NEGATI VE negati ve Not Available [facility] ([facility]) [address] [place], [address], 07/05/2024 14:37:45 07/03/2007/04/2024 PREGN KULWANT, INITI AL SCREE N ketones NEGATI VE negati ve Not Available [facility] ([facility]) [address] [facility], [place], [address], 07/05/2024 14:37:45 07/03/2007/04/2024 PREGN KULWANT, INITI AL SCREE N occult blood 2+ negati ve abnormal Not Available [facility] ([facility]) [address] [place], [address], 07/05/2024 14:37:45 07/03/2007/04/2024 PREGN KULWANT, INITI AL SCREE N bilirubin NEGATI VE negati ve Not Available [facility] ([facility]) [address] [place], [address], 07/05/2024 14:37:45 07/03/2007/04/2024 PREGN KULWANT, INITI AL SCREE N urobilinogen ,semi-qn 0.2 mg/dL 0.2-1. 0 Not Available [facility] ([facility]) [address] [place], [address], 07/05/2024 14:37:45 07/03/2007/04/2024 PREGN KULWANT, INITI AL SCREE N nitrite, urine NEGATI VE negati ve Not Available [facility] ([facility]) [address] [place], [address], 07/05/2024 14:37:45 07/03/2007/04/2024 PREGN KULWANT, INITI AL SCREE N microscopic examination SEE BELOW: Micro scopi c was indic ated and was perfo rmed. Not Available [facility] ([facility]) [address] [facility], [place], [address], 07/05/2024 14:37:45 07/03/2007/05/2024 PREGN KULWANT, INITI AL SCREE N urine culture,pren atal, w/gbs FINAL REPORT Not Available [facility] ([facility]) [address] [facility], [place], [address], 07/05/2024 14:37:45 07/03/2007/04/2024 MICRO SCOPI C EXAMI NATIO N WBC 0-5 /hpf 0-5 Not Available [facility] ([facility]) [address] [facility], [place], [address], 07/05/2024 14:37:47 07/03/2007/04/2024 MICRO SCOPI C EXAMI NATIO N RBC 3-10 /hpf 0-2 abnormal Not Available [facility] ([facility]) [address] [facility], [place], [address], 07/05/2024 14:37:47 07/03/2007/04/2024 MICRO SCOPI C EXAMI NATIO N epithelial cells (non renal) 0-10 /hpf 0-10 Not Available [facility] ([facility]) [address] [facility], [place], [address], 07/05/2024 14:37:47 07/03/2007/04/2024 MICRO SCOPI C EXAMI NATIO N casts None seen /lpf nonese en Not Available [facility] ([facility]) [address] [facility], [place], [address], 07/05/2024 14:37:47 07/03/2007/04/2024 MICRO SCOPI C EXAMI NATIO N bacteria Few nonese en/few Not Available [facility] ([facility]) [address] [facility], [place], [address], 07/05/2024 14:37:47 07/03/2007/05/2024 RESUL T result 1 Commen t Mixed uroge nital josé miguel 25,00 0-50, 000 colon y formi ng units per mL Not Available [facility] ([facility]) [address] [facility], [place], [address], 07/05/2024 14:37:48 07/03/2007/04/2024 VITAM IN D, 25-HY DROXY vitamin D, 25-hydroxy 20.8 NG/mL 30.0-1 00.0 below low normal Vitam in D defic iency has been defin ed by the Insti tute of Medic ine and an Endoc rine Socie ty pract ice guide line as a level of serum 25-OH vitam in D less than 20 ng/mL (1,2) . The Endoc rine Socie ty went on to furth er defin e vitam in D insuf ficie ncy as a level betwe en 21 and 29 ng/mL (2). 1. IOM (Inst itute of Medic ine). 2009. Dieta ry refer ence teofilo es for calci um and D. Delicia bruno [place]: The [facility] Press . 2. Sid garcia MF, Arianna ey [place], Chelsy off-F errar i HAN, et al. Evalu ation , treat ment, and preve ntion of vitam in D defic iency : an Endoc rine Socie ty clini juanito pract ice guide line. JCEM. 2010; 96(7) :1911 -30. Not Available [facility] ([facility]) [address] [facility], [place], [address], 07/05/2024 14:37:49 07/03/2007/04/2024 VARIC ETTA- ZOSTE R V AB, IGG varicella zoster IgG REACTI VE nonrea ctive Ple ase note refer ence inter sunil trinh e A React teresita resul t is consi dered evide nce of immun ity to VZV. React teresita indic ates that VZV IgG was detec víctor consi stent with previ ous infec tion and/o r vacci natio n. A Non React teresita resul t indic ates that VZV IgG was not detec víctor sugge sting that immun ity has not been acqui red. Not Available [facility] ([facility]) [address] [facility], [place], [address], 07/05/2024 14:37:50 07/03/2007/09/2024 IGP, RFX APTIM A HPV ASCU diagnosis: DORA Cantu NEGAT TERESITA FOR INTRA EPITH ELIAL LESIO N OR SUKHDEEP HAY . Not Available [facility] ([facility]) [address] [facility], [place], [address], 07/09/2024 18:35:51 07/03/2007/09/2024 IGP, RFX APTIM A HPV ASCU specimen adequacy: DORA Cantu Satis facto ry for evalu ation . Endoc ervic al and/o r squam ous metap lasti c cells (endo cervi juanito compo nent) are prese nt. Not Available [facility] ([facility]) [address] [facility], [place], [address], 07/09/2024 18:35:51 07/03/2007/09/2024 IGP, RFX APTIM A HPV ASCU clinician provided ICD10: DORA Cantu Z34.0 1 Z12.4 Not Available [facility] ([facility]) [address] [place], [address], 07/09/2024 18:35:51 07/03/2007/09/2024 IGP, RFX APTIM A HPV ASCU performed by: DORA renee , Cytopepe cantu (ASCP ) Not Available [facility] ([facility]) [address] [place], [address], 07/09/2024 18:35:51 07/03/2007/09/2024 IGP, RFX APTIM A HPV ASCU . . Not Available [facility] ([facility]) [address] [place], [address], 07/09/2024 18:35:51 07/03/2007/09/2024 IGP, RFX APTIM A HPV ASCU note: COMMEN T The Pap smear is a scree silverio test desig jodie to aid in the detec tion of anthony ligna nt and malig nant condi tions of the uteri ne cervi x. It is not a diagn ostic proce dure and shoul d not be used as the sole means of detec ting cervi juanito cance r. Both false -posi tive and false -nega tive repor ts do occur . Not Available [facility] ([facility]) [address] [facility], [place], [address], 07/09/2024 18:35:51 07/03/2007/09/2024 IGP, RFX APTIM A HPV ASCU test methodology: COMMEN T This liqui d based ThinP rep(R ) pap test was scree jodie with the use of an image guide d syste m. Not Available [facility] ([facility]) [address] [facility], [place], [address], 07/09/2024 18:35:51 07/03/2007/09/2024 IGP, RFX APTIM A HPV ASCU . COMMEN T The HPV DNA refle x crite tianna were not met with this speci men resul t there fore, no HPV testi ng was perfo rmed. Not Available [facility] ([facility]) [address] [place], [address], 07/09/2024 18:35:51 Result Notes None recorded. Problems Name Problem SNOMED Code Status Onset Date Resolution Date Notes Provider Name and Address Organization Details Recorded Time Pregnanc y 74113148 Completed 202307/16/2024 PAULINA KING MD Attn: Accountin g,[address] [facility], [place], [address], [place] - [facility] 4 12:45:31 Maternal obesity complica ting pregnanc y, childbir th and the [place] , [facility] [id number] 7 Completed 202307/16/2024 Pre-preg gael weight 240 lbs, BMI 37. Recommen ded 11-20 lbs weight gain. Needs antenata l surveill ance (NST+IVONNE or BPP) weekly at 37w0d for pre-preg BMI 35-39.9. PAULINA KING MD Attn: Lynda hillary,[address] [facility], [place], [address], [place] [facility] 4 14:29:36 Maternal obesity complica ting pregnanc y, childbir th and the [place] , [facility] [id number] 7 Completed 2023 Pre-preg gael weight 240 lbs, BMI 37. Recommen ded 11-20 lbs weight gain. Needs antenata l surveill ance (NST+IVONNE or BPP) weekly at 37w0d for pre-preg BMI 35-39.9. PAULINA KING MD Attn: Lynda hillary,[address] [facility], [place], [address], [place] [facility] 4 11:23:24 Dyslexia 41921052 Active 2023 PAULINA KING MD Attn: Lynda g,[address] [facility], [place], [address], [place] [facility] 4 14:29:51 Obese class II [id number] 4105 Active 2023 PAULINA KING MD Attn: Lynda g,[address] [place], [address], [place] [facility] 4 14:30:28 Vitamin D below referenc e range 162694442 Active 2023 PAULINA KING MD Attn: Lynda thornton,[address], [place], [address] [place] [address] - [facility] 4 14:34:37 Problem Notes None recorded. Medical Equipment None Reported. Allergies Allergen ID Allergen Name Allergen Category Reaction Reaction Severity Criticality Documentation Date Start Date Code Code System Note Provider Name and Address Organization Details Recorded Time 629428 latex environme nt,medica tion itching Not available Not available 07/03/2024 92218 91 RxNorm Not Available Not Available Not Available Medications Name Sig Start Date Stop Date Status Note LastModified by Organization Details LastModified Time cephalexin 500 mg capsule TAKE 1 CAPSULE BY MOUTH TWICE DAILY FOR 7 DAYS FOR UTI 07/03 completed Not Available Not Available Not Available 28 mg iron-800 mcg tablet TAKE 1 TABLET BY MOUTH EVERY NIGHT FOR 07/16 completed Not Available Not Available Not Available Blisovi Fe 09/30 (28) 1 mg-20 mcg (21)/75 mg (7) tablet TAKE 1 TABLET BY MOUTH EVERY DAY 07/03 completed Not Available Not Available Not Available Twirla 120 mcg-30 mcg/24 hr transdermal patch Apply 1 patch every week by transderm al route for 21 days. 2023 active Not Available Not Available Not Avai lable WesTab Plus 27 mg iron-1 mg tablet TAKE 1 TABLET BY MOUTH DAILY active Not Available Not Available No t Available Vitals Date Recorded Body weight Body mass index (BMI) Body mass index (BMI) Percentile per age and sex Body height Systolic blood pressure Diastolic blood pressure Provider Name and Address Organization Details Last Updated DateTime 1 645159. 32 g 38.7 kg/m2 98 % 170.18 cm 124 mm[Hg] 86 mm[Hg] Gosia Cruz [place] - [facility] 1 11:29:55 Date Recorded Body height Body mass index (BMI) Percentile per age and sex Body mass index (BMI) Body weight Systolic blood pressure Diastolic blood pressure Provider Name and Address Organization Details Last Updated DateTime 2 170.18 cm 98 % 37.6 kg/m2 223550. 89 g 130 mm[Hg] 98 mm[Hg] Lorenza Ruiz [place] - [facility] 2 09:17:26 Date Recorded Body height Body mass index (BMI) Body weight Oxygen saturation Oxygen saturation in Arterial blood by Pulse oximetry Body temperature Systolic blood pressure Diastolic blood pressure Provider Name and Address Organization Details Last Updated DateTime 4 170.18 cm 37.2 kg/m2 100170. 49 g 100 % 100 % 98.2 [degF] 117 mm[Hg] 78 mm[Hg] Lorenza Ruiz [facility] 4 11:02:29 Date Recorded Body height Body mass index (BMI) Body weight Heart rate Oxygen saturation Oxygen saturation in Arterial blood by Pulse oximetry Body temperature Respiratory rate Systolic blood pressure Diastolic blood pressure Provider Name and Address Organization Details Last Updated DateTime 4 170.18 cm 36.8 kg/m2 956487. 21 g 73 /min 99 % 99 % 98.4 [degF] 16 /min 122 mm[Hg] 87 mm[Hg] Lauryn Wang MA [facility] 4 12:05:40 Social History Question Answer Notes LastModified by Organizat ion Details LastModified Time Tobacco Smoking Status Never Smoker [facility] 05/27/2021 11:25:18 What Is Your Level Of Alcohol Consumption? None [email or web address] Information not available 05/27/2021 Are You Blind Or Do You Have Difficulty Seeing? No Information not available 07/03/2024 Is Blood Transfusion Acceptable In An Emergency? Yes [email or web address] Information not available 05/27/2021 What Is Your Level Of Caffeine Consumption? None 07/03/24 No Caffeine Since Information not available 07/03/2024 In The 14 Days Before Symptom Onset, Have You Had Close Contact With A Laboratory-confi rmed COVID-19 While That Case Was Ill? No [email or web address] Information not available 05/27/2021 In The 14 Days Before Symptom Onset, Have You Had Close Contact With A Person Who Is Under Investigation For COVID-19 While That Person Was Ill? No [email or web address] Information not available 05/27/2021 Have You Been To An Area Known To Be High Risk For COVID-19? No Information not available 05/27/2021 Are You Currently Employed? Yes Information not available 07/03/2024 Are You Deaf Or Do You Have Serious Difficulty Hearing? No Information not available 07/03/2024 What Type Of Diet Are You Following? 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 No [email or web address] Information not available 05/27/2021 Are There Any Guns Present In Your Home? No Information not available 07/03/2024 What Was The Date Of Your Most Recent Tobacco Screening? 07/03/2024 Information not available 07/03/2024 Do You Use Protection During Sex? No Information not available 07/03/2024 What Is Your Relationship Status? Single [email or web address] Information not available 05/27/2021 Do You Use Your Seat Belt Or Car Seat Routinely? Yes [email or web address] Information not available 05/27/2021 Are You Sexually Active? Yes Information not available 07/03/2024 Do You Have Smoke And Carbon Monoxide Detectors In Your Home? Yes [email or web address] Information not available 05/27/2021 Are You Passively Exposed To Smoke? No [email or web address] Information not available 05/27/2021 Do You Feel Stressed (tense, Restless, Nervous, Or Anxious, Or Unable To Sleep At Night)? [id number] 07/03/24 Anxious Information not available 07/03/2024 Do You Use Any Illicit Or Recreational Drugs? Yes 07/03/24 Marijuanna Information not available 07/03/2024 Do You Use Sunscreen Routinely? Yes [email or web address] Information not available 05/27/2021 Has Tobacco Cessation Counseling Been Provided? No Information not available 09/15/2021 Do You Or Have You Ever Used Any Other Forms Of Tobacco Or Nicotine? No [email or web address] Information not available 05/27/2021 Sex: Female Functional Status Question Answer Note LastModified by Organizat ion Details LastModified Time Are you able to care for yourself? Yes Information not available 07/03/2024 What is your exercise level? Occasional [email or web address] Information not available 05/27/2021 Mental Status None recorded. Family History Relationship Description Onset Age of this Age Resolved Age Notes LastModified by Organization Details LastModified Time Father Hypertensive disorder [email or web address] Not available 05/27 11:24:00 Father Carcinoma of prostate Not available 05/27 11:24:16 Father Diabetes mellitus [email or web address] Not available 05/27 11:24:26 Father Hypercholest erolemia [email or web address] Not available 05/27 11:24:43 Brother Hypertensive disorder [email or web address] Not available 05/27 11:24:00 Brother Hypercholest erolemia [email or web address] Not available 05/27 11:24:43 Mother Hypertensive disorder [email or web address] Not available 05/27 11:24:00 Mother Hypercholest erolemia [email or web address] Not available 05/27 11:24:43 Maternal Grandmother Heart disease [email or web address] Not available 07/03 11:07:08 Medical History Condition Response Coronary Artery Disease N Other N High Blood Pressure N Atrial Fibrillation N Breast Cancer N Blood Clots N COPD N Depression N Lung Disease N Breast Problem N Anesthesia Complications N Headaches/Migraines N Anxiety Disorder Y Muscle, Joint, or Bone Problems N Arthritis N Polyps N Acid Reflux (GERD) N Cancer N Stroke N ADHD N Endometriosis N High Cholesterol N Liver Disease N Headaches N Schizophrenia N Thyroid Problems N Kidney or Bladder Problems N GI Problems N Acne N Have you had a mammogram in the last yea r? N Skin Problems N Eating Disorder N Anemia N Heart Attack (OR) N Ovarian Cancer N Diabetes N Blood Transfusions N Seizures/Epilepsy N Have you had a colonoscopy in the last 1 0 years? N Abuse/Domestic Violence N Asthma N Allergies Y Have you had a PSA blood test in the las t year? N Substance Abuse N Hepatitis N Heart Disease N Osteoporosis N Heart Failure N Gynecological History Statement/Question Response Flow Moderate Date of LMP 04/15/2024 Sexually Active? Y Menses Monthly N HPV Vaccine N Date of Last Pap Smear Duration of Flow (days) 6 Age at Menarche 15 Current Control Method None LMP Approximate Obstetrics History GPAL:G 1 P 0 0 1 0 Type Value Multiple Births 0 Full Term 0 Induced 0 Spontaneous 1 Premature 0 Living 0 Ectopics 0 Total 1 Immunizations Vaccine Type Date Status Note Provider Nam e and Address Organization Details Recorded Time COVID-19, mRNA, LNP-S, PF, 100 mcg/0.5mL dose or 50 mcg/0.25mL dose 1 completed PAULINA KING MD Attn: [address]ing,[address] [place], [place], [address] [place] [address], [place] [facility] 07/16/2024 12:53:01 Hib, unspecified formulation 2 completed PAULINA KING MD Attn: Accounting,[address] [place], [address], [place] [facility] 07/16/2024 12:52:51 Hib, unspecified formulation 2 completed PAULINA KING MD Attn: Accounting,[address] [place], [place], [address] [place] [address], [place] [facility] 07/16/2024 12:52:51 Hib, unspecified formulation 1 completed PAULINA KING MD Attn: Accounting,[address] [place], [address], [place] [facility] 07/16/2024 12:52:51 Hib-Hep B 2 completed PAULINA KING MD Attn: Accounting,[address] [place], [address], [place] [facility] 07/16/2024 12:52:51 IPV 2 completed PAULINA KING MD Attn: Accounting,[address] [place], [address], [place] [facility] 07/16/2024 12:52:51 IPV 2 jose KING MD Attn: Accounting,[address] [place], [address], [place] [facility] 07/16/2024 12:52:51 IPV 1 completed PAULINA KING MD Attn: Accounting,[address] [place], [address], [place] [facility] 07/16/2024 12:52:51 MMR 2 completed PAULINA KING MD Attn: Accounting,[address] [facility], [place], [address], [place] [facility] 07/16/2024 12:52:51 pneumococcal conjugate PCV 7 2 completed PAULINA KING MD Attn: Accounting,[address] [facility], [place], [address], [place] [facility] 07/16/2024 12:52:51 varicella 2 completed PAULINA KING MD Attn: Accounting,[address] [facility], [place], [address], [place] [facility] 07/16/2024 12:52:51 Hep B, adolescent or pediatric 1 completed PAULINA KING MD Attn: Accounting,[address] [facility], [place], [address], [place] [facility] 07/16/2024 12:52:51 Hep B, adolescent or pediatric 1 completed PAULINA KING MD Attn: Accounting,[address] [facility], [place], [address], [place] [facility] 07/16/2024 12:52:52 DTaP 2 completed PAULINA KING MD Attn: Accounting,[address] [facility], [place], [address], [place] [facility] 07/16/2024 12:52:52 DTaP 2 completed PAULINA KING MD Attn: Accounting,[address] [facility], [place], [address], [place] [facility] 07/16/2024 12:52:52 DTaP 1 completed PAULINA KING MD Attn: Accounting,[address] [facility], [place], [address], [place] [facility] 07/16/2024 12:52:52 Influenza, split virus, trivalent, PF 4 completed Lauryn Wang [place], [place] [facility] 07/16/2024 13:21:51 MMR 4 completed Lauryn Wang MA [facility], [place] - [facility] 07/16/2024 13:20:57 Past Encounters Encounter ID Performer Location Encounter Start Date Encounter Closed Date Diagnosis/Indication Diagnosis SNOMED-CT Code Diagnosis ICD10 Code Diagnosis Note [id number] Selina Nova Rachelle (OPTIMIZATION CONSULTANT) [address] [facility] [place] [address] 05/27/2021 11:06:47 05/28/2021 12:41:41 Irregular periods 21116146 N92.6 Will check hormones. Option of using OCPs to regulate periods discussed. Pt. agreeable. Rx sent. Instructio ns discussed. [id number] MD Rachelle Hamm (OPTIMIZATION CONSULTANT) [address] [facility] [place] [address] 09/15/2021 09:08:04 09/18/2021 09:18:08 Irregular periods 18664383 N92.6 Contracept ion care management 115693141 Z30.9 Elevated blood-pressure reading without diagnosis of hypertension 271376380 R03.0 Body mass index 30+ - obesity 156356625 Z68.37 [id number] MD Rachelle CALDERON (OPTIMIZATION CONSULTANT) [address] [place] [address] 07/03/2024 10:45:23 07/13/2024 11:57:28 Screening for malignant neoplasm of cervix 221012182 Z12.4 - Due for co-testing ; collected today Routine an tenatal care 555038401 Z34.01 LABS- Routine labs: {{Up to date Initi al OB panel with varicella immunity testing* 2 nd trimester labs: 1h GTT, Hgb/Hct 3r d trimester labs: HIV, RPR 36 week labs: GBS swab}} - Additional labs: {{N/A* Nita case [facility] labs A1c E vini 1h GTT Repeat CBC 3h GTT UCx - test of cure NG/CT - test of cure NuSwa b}} VACCINES - counseled on recommende d vaccines on 07/03/24- COVID: J&J vaccine (2020); due for updated vaccine at any time.- flu (if in season): due at any time- Tdap: due at 27+ weeks- RSV: due between 32 and 36 weeks GENETIC TESTING - counseled on limitation s of testing and follow up if needed on 07/03/24- Carrier screen: may be ordered at any time- NIPT: to be ordered at 10+ weeks- AFP: to be ordered between 15-20 weeks IMAGING- Dating US: performed at hospital - 7w4d on 06/07/24; ANDREA 01/20/25- Anatomy US: to be performed between 18-22 weeks Maternal o besity complicating , childbirth and the puerperium, antepartum 8657483675 07 O99.211 - BMI at initial OB visit 37- Recommende d weight gain during : 11-20 lbs- Needs surveillan ce (NST+IVONNE or BPP) weekly at 37w0d for pre-preg BMI 35-39.9- Given ACOG handout on obesity in with informatio n on healthy diet and physical activity during Positive s creening for depression on PHQ-9 (Patient Health Questionnaire 9) 0198777056 92010 Z13.31 - Positive PHQ-9 with negative PHQ-2; does not meet criteria for depression [id number] PAULINA KING MD [facility] (OPTIMIZATION CONSULTANT) [address] [place] [address] 07/16/2024 11:43:37 07/17/2024 10:42:11 Miscarriage in first trimester 38092224 O03.9 - Seen in ED on 07/05/24- Provided reassuranc e, recommende d taking time to grieve as needed and to call if feeling more depressed. May try for again when desired. Administra tion of influenza vaccine 37984000 Z23 - Given flu vaccine Rubella non-immune 21147 4009 Z01.84 - Rubella non-immune on initial labs- Given MMR vaccine Contracept ion care management 267545797 Z30.9 - Discussed various contracept ion methods available, risks/bene fits, and patient preference s- Patient not a good candidate for LARCs, as she is considerin g in near future- Recommende d backup method for 7 days after starting control patches. Given Reproducti ve Access handout on patch use.- Continue vitamin Vitamin D below reference range 190269909 E55.9 - Recommende d checking if vitamin contains at least 1000 IU vitamin D Health Concerns Section Related Observation LastModified by Organization Detai ls LastModified Time None Recorded Concern Status LastModified by Organization Details LastModified Time None Recorded Advance Directives Directive None Recorded Payers Encounter Date Sequence Insurance Name Policy Number Policy Langley Covered Member ID Langley Member ID Guarantor Name 05/27/2021 1 [facility] - DOS ON OR AFTER 2020 - DUAL ELIGIBLE (MEDICARE REPLACEMENT/AD VANTAGE - HMO) Jaquelin Dooleyter [id number] Jaquelin Parker 09/15/2021 1 [facility] - DOS ON OR AFTER 21 (MEDICAID REPLACEMENT - HMO) Jaquelin Parker [id number] Jaquelin Parker 07/03/2024 1 *SELF PAY* Cl margarita Parker 07/16/2024 1 MEDICAID - MOVED-MGRHOLD - PENDING [id number] Jaquelin Parker Notes Date Note Type Note Provider Name and Address Organization Details Recorded Time 05/27/2021 text/html Pt. presents wit h c/o skipping several months on her period and then having two in a month. This started about one year ago. Her weight has not changed in the past year. Selina garibay, [place] - [facility] 05/27/2021 12:22:34 09/15/2021 text/html Jaquelin is a 21 y/ o overweight female who presents to the clinic with questions regarding OCP secondary to reports of recent intermittent spotting. Jaquelin has long hx of irregular periods and was seen approximately 3 months prior for evaluation. OCP was started with no other reported side effects other than spotting. Spotting with no regular pattern. Additionally on visit today patient's blood pressure elevated x 2. Patient's mother is present in office with her today. Tasneem Gardner MD Attn: Accounting,[address] [facility], [place], [address], [facility] [facility] - [facility] 09/15/2021 09:57:08 07/03/2024 text/html Initial OB Visit Dating confirmation previously performed? Yes - 7w4d on 06/07/24; ANDREA 01/20/25Initial OB labs available to review? No Concerns today- Has aching in lower abdomen and radiating up to flank bilaterally. Hurts for anyone to touch sides.- No hematuria, dysuria- No known FHx of kidney stones OB Review of Systems- Contractions: {{present absent*}}- movement: {{present absent*}}- Leakage of fluid: {{no* yes}}- Vaginal bleeding: {{no* yes}}- Lower extremity edema: {{no* yes}} Pre-eclampsia Risk Factor AssessmentHigh-risk Factors- History of pre-eclampsia, especially when accompanied by an adverse outcome? {{yes no*}}- Multifetal gestation? {{yes no*}}- Chronic hypertension? {{yes no*}}- Pregestational DM1 or DM2? {{yes no*}}- Renal disease? {{yes no*}}- Autoimmune disease (e.g. SLE, antiphospholipid syndrome)? {{yes no*}}- Combinations of multiple moderate-risk factors? {{yes* no}} Moderate-risk Factors- Nulliparity? {{yes* no}}- BMI >30? {{yes* no}} - pre- BMI 37, weight 240 lbs- Family history of pre-eclampsia in mother or sister? {{yes* no}} - in mother- Black person (due to social, rather than biological factors)? {{yes no*}}- Lower income? {{yes* no}}- 35 or more years old? {{yes no*}}- Personal history factors (e.g. low weight or SGA baby, previous adverse outcome, >10-year interval)? {{yes no*}}- In vitro conception? {{yes no*}} PAULINA KING MD Attn: Accounting,[address] [place], [address], [facility] 07/03/2024 12:53:44 07/16/2024 text/html Miscarriage- Marija t to ED on 07/04/24 in the evening for vaginal bleeding. Had miscarriage with passage of products of conception while in ED. Surgical pathology consistent with products of conception.- Has stopped bleeding since then- Has continued taking PNV- Unsure when she wants to try again for . Interested in control until ready to try again. OCP questionnaire- History of migraines with or without aura? {{Yes - with aura Yes - without aura* No}}- Personal or family history of DVT/PE or blood clotting disorder? {{Yes No*}}- Smoker age 35+? {{Yes No*}}- On antiepileptics or rifampin {{Yes No*}} PAULINA KING MD Attn: Accounting[address] [place], [address], [place] [facility] 07/16/2024 14:36:26 OBGyn Episode Ob Episode Information Episode Created Date Number of Fetuses Patient Bloodtype Patient rh Status Prepregnancy Weight lbs Domestic Partner Domestic Partner Phone Father Name Steel Plate Caulker Status 07/03/20 24 1 B Positive 240 Ariel Maurisio CLOSED Fetus Data First Name Last Name Admitted to NICU Weight (g) Sex Living Outcome Pediatric Complications Fetus ID Race Codes Race Delivery Type [id number] Problems Problem Notes RISK FACTORS / PERTINENT HX- , ANDREA 01/20/25 by 7w - Pre-preg BMI 37, weight 240# - rec'd 11-20# wt gain- Indication for preE PPx: nulliparity, BMI>30, FHx, SESDELIVERY/ PLAN- Support person: Ariel- Anticipated delivery: - Pain mgmt: TBD- Contraception: TBDNEWBORN INFO- Sex: TBD- Name: TBD- Feeding: TBD- Desires circumcision: TBD- Doctor: TBD Problem Name Start Date End Date Resolution Snomed Code Not e Maternal obesity complicating , childbirth and the puerperium, antepartum 07/03/2024 [id number] Pre- w eight 240 lbs, BMI 37. Recommended 11-20 lbs weight gain. Needs surveillance (NST+IVONNE or BPP) weekly at 37w0d for pre-preg BMI 35-39.9. Andrea Calculation Initial Andrea Date Initial Exam Date Initial Exam Provider Initial Ultrasound Date Last Menstrual Period Date Ultra Sound Weeks Gestation 01/20/2025 07/03/2024 [email or web address] 06/07/2024 04/15/2024 7 Eighteen To Twenty Week Andrea Update Ultra Sound Date Fundal Height At Umbil Quickening Date Ultra Sound Latest Weeks Gestation Final Andrea Confirmed By Final Andrea Confirmed Date Final Andrea Date Ultra Sound Latest Days Gestation 0 [email or web address] 07/03/2024 01/21/20 25 0 Pre-charissa Flowsheet Flowsheet Date 07/03/2024 Dorsey Score Blood Edema Fundus Height Fundus Units Glucose Ketones Leukocytes Nitrite Labor Signs Protein Cervic Dilation Cervic Effacement Cervic Station none Type Weight in lbs Pre/Post Dialysis Refused With clothes [id number] BP Diastolic BP Location Tested BP Systolic BP Type 78 L arm 117 sitting Fetus Heart Rate Present Fetus Movement A No Comments - Concerns today: Low abdomi nal pain radiating to sides. No hematuria, dysuria.- OB ROS: No movement. No CTX, LOF, vaginal bleeding, BLE edema.- Exam: Normal cardiac and lung exams. exam normal; Pap collected.- Provided with proof of letter and advised to get Medicaid for insurance coverage throughout .- RTC: 4 weeks Flowsheet Date 07/16/2024 Dorsey Score Blood Edema Fundus Height Fundus Units Glucose Ketones Leukocytes Nitrite Labor Signs Protein Cervic Dilation Cervic Effacement Cervic Station Type Weight in lbs Pre/Post Dialysis Refused With clothes 235.083523148227 BP Diastolic BP Location Tested BP Systolic BP Type 87 R arm 122 sitting Fetus Heart Rate Present Fetus Movement Comments Menstrual History Last Menstrual Date Menses Monthly On Bcp Conception Prior Menses Frequency Hcg Plus Date Menarche Onset Age 0804/15/2024 false false 4 14 Genetic Screening And Infection History Question Response Note Patient's Age Will Be 35 Yea rs Or Older At Estimated Date of Delivery false Thalassemia (Latvian, Niuean, Mediterranean, Or Background): MCV < 80 false Neural Tube Defect (Meningom yelocele, Spina Bifida, Or Anencephaly) false Congenital Heart Defect false Down Syndrome false [place] (eg, Roman Catholic, Cajun, Syriac-[place]) f alse James Disease false Sickle Cell Disease Or Trait () false Hemophilia Or Other Blood Disorders false Muscular Dystrophy false Cystic Fibrosis false Snyder's Chorea false Mental Retardation/Autism false If Yes, Was Person Tested For Fragile X? false Other Inherited Genetic Or Chromosomal Disorder false Maternal Metabolic Disorder (eg, Type 1 Diabetes, PKU) false Patient Or Baby's Father Had A Child With Defects Not Listed Above false Recurrent Loss, Or A Stillbirth false Medications (including Suppl ements, Vitamins, Herbs, OTC Drugs), Illicit/Recreational Drugs, Alcohol true 28mg iron-800mcg tb If Yes, Agent(s) And Strength/Dosage true Any Other Genetic History false Live With Someone With TB Or Exposed To TB false Patient Or Partner Has Histo ry Of Genital Herpes false Rash Or Viral Illness Since Last Menstrual Period false History Of STD, Gonorrhea, C hlamydia, HPV, Syphilis false Other Infection History false History of HIV false History of Hepatitis false Prior GBS-infected child false Plans and Education First Trimester Discussed Date Discussion Item Discussion Note Discuss ed By 07/03/2024 Anticipated course of care [email or web address] 07/03/2024 Alcohol [email or web address] 07/03/2024 Intimate partner violence dc [email or web address] 07/03/2024 Environmental/work hazards truong naaya 07/03/2024 Screening for aneuploidy [facility] [email or web address] 07/03/2024 Nutrition counseling ; special diet; dietary precautions (mercury, listeriosis) [email or web address] 07/03/2024 Childbirth classes/hospital facilities [email or web address] 07/03/2024 HIV and other routine tests [email or web address] 07/03/2024 Risk factors identif ied by history [email or web address] 07/03/2024 Weight gain counseling [email or web address] 07/03/2024 Exercise [email or web address] 07/03/2024 Use of any medicatio ns (including supplements, vitamins, herbs, or OTC drugs) [email or web address] 07/03/2024 [email or web address] 07/03/2024 Sexual activity [email or web address] 07/03/2024 Tobacco/smoking cess ation counseling (ask, advise, assess, assist, and arrange) [email or web address] 07/03/2024 Illicit/recreational drugs truong anaya 07/03/2024 Dental care [email or web address] 07/03/2024 Travel [email or web address] 07/03/2024 Seat belt use [email or web address] 07/03/2024 Indications for ultrasonography 07/03/2024 Toxoplasmosis precautions (cats/raw meat) Second Trimester Discussed Date Discussion Item Discussion Note Discuss ed By Third Trimester Discussed Date Discussion Item Discussion Note Discuss ed By Delivery Information Delivery Date Delivery Type Labor Anesthesia Weeks Gestation Incision Type Labor Labor Length Hrs Delivered By Post Complications Tubal Sterilization Discharge Date Comments Discharge Information Feeding Method Contraceptive Method Maternal HG B and HCT Levels
--- OUTSIDE RECORDS SUMMARY | 2024-11-30 00:13 | XMS_ITS | Clinical Summary ---
Author Organization [facility] Address [address] [place] [address] Care Team Providers Care Adjudication Specialist Name Role Phone Miscellaneous, Not In File [...] on file Sexual Orientation Not on file Obstetrics History Para Term AB IAB SAB Ectopic Multiple Livin g Live Births 1 Date Outcome GA Total Labor Labor/2nd/3rd Weight Sex Type Anes PTL Vanesa A1 A5 Name Clin Current Last Filed Vital Signs Vital Sign Reading [...] 07/05/2024 7:20 AM CDT Plan of Treatment Health Maintenance Due Date Last Done Comments Cervical Cancer Screening 2001 Depression Screening 2001 Hepatitis C Screening 2001 Varicella Vaccines (2 of 2 - 2-dose childhood series) 2005 07/10/2002 HPV Vaccines (1 - 3-dose series) 2016 Meningococcal B Vaccine (1 of 2 - Standard) 2017 Regular Well Visit/Exam 18-64 2019 Influenza Vaccine (#1) 2024 DTaP/Tdap/Td Vaccine (5 - Td or Tdap) 01/28/2028 01/27/2018, 02/06/2002, 2001, Additional history exists Hepatitis B Screening Completed 02/06/2002 , 2001, 2001 Pneumococcal vaccine <65 Aged Out 07/10/2002 No longer eligible based on patient's age to complete this topic Care Teams Adjudication Specialist Relationship Specialty Start Date End Date Miscellaneous, Not In File PCP - General 07/04/24
--- OUTSIDE RECORDS SUMMARY | 2024-11-30 00:13 | XMS_ITS | Clinical Summary ---
Author Organization [facility] Address [address] [place] [address] Phone Care Team Providers Care Supervisor Fur Dressing Name Role Phone Provider, None Primary Care Provider Unavailabl e Allergies Active Allergy Reactions Criticality Noted Date Comments Latex Rash 06/07/2024 Medications No known medications Immunizations Immunization Administration Dates Next Due TDAP Vaccine 01/27/2018 Social History Tobacco Use Types Packs/Day Years Used Date Smoking Tobacco: Never Smokeless Tobacco: Never Alcohol Use Standard Drinks/Week Comments No 0 (1 standard drink = 0.6 oz pur e alcohol) Comments No Sex and Gender Information Value Date Recorded Sex Assigned at Not on file Legal Sex Female 4:06 PM CDT Gender Identity Not on file Sexual Orientation Not on file Last Filed Vital Signs Vital Sign Reading Time Taken Comments Blood Pressure 123/78 06/07/2024 3:05 PM CDT Pulse 91 06/07/2024 3:05 PM CDT Temperature 37.1 C (98.7 F) 06/07/2024 3:05 PM CDT Respiratory Rate 20 06/07/2024 3:05 PM CDT Oxygen Saturation 100% 06/07/2024 3:05 PM CDT Inhaled Oxygen Concentration - - Weight 107.8 kg (237 lb 10.5 oz) 06/07/2024 3:05 PM CDT Height 170.2 cm (5' 7 ) 06/07/2024 3:05 PM CDT Body Mass Index 37.22 06/07/2024 3:05 PM CDT Plan of Treatment Health Maintenance Due Date Last Done Comments Hepatitis C Virus (HCV) Screening 2001 Human Papillomavirus (HPV) Immunization (1 - 3-dose series) 2016 Meningococcal B Immunization (1 of 2 - Standard) 2017 Pap Smear 2022 Influenza Immunization (#1) 2024 SARS-COV-2 Immunization (2 - 2023- season) 2024 12/18/2020, 12/18/2020 Td Immunization Every 10 Yea rs (Adults With 1 Tdap) 01/28/2028 01/27/2018 Respiratory Syncytial Virus (RSV) Immunization (Adult) (1 - 1-dose 75+ series) 2076 Hepatitis B Immunization Completed 002, 2001, 2001 Pneumococcal Immunization Combined Aged Out 07/10/2002 No longer eligible b ased on patient's age to complete this topic Meningococcal Immunization (ACWY) Aged Out No longer eligible b ased on patient's age to complete this topic Rotavirus Immunization Aged Out No lo nger eligible based on patient's age to complete this topic Care Teams Supervisor Fur Dressing Relationship Specialty Start Date End Date Provider, None [place] PCP - General 01/27/18
== END 2024-11-30 00:59 | disposition home or self-care (01) ==
PROVIDERS: Emergency Provider Registered Nurse; PCP Obstetrics & Gynecology
DX: O20.9 Hemorrhage in early pregnancy, unspecified (principal); O23.41 Unspecified infection of urinary tract in pregnancy, first trimester; N39.0 Urinary tract infection, site not specified; Z3A.08 8 weeks gestation of pregnancy
CPT/HCPCS: 36415; 76801; 76817; 80053; 81001; 84702; 85025; 87086; 96360; 99284; A9270; J7030

== ENCOUNTER 2025-04-29 14:11 | Outpatient (RCR) | payer OTHER, SELFPAY ==
--- NOTE | ~2025-04-29 | US_ITS ---
EXAMINATION: US OB BPP wo non-stress DATE: 04/29/2025 18:02 CDT INDICATION: Decreased movements TECHNIQUE: Real-time transabdominal obstetric ultrasound. FINDINGS: Comparison to 11/29/2024 There is a single living fetus in vertex presentation. The placenta is anterior without placenta previa. cardiac activity and movement is noted with a heart rate of 143 beats per minute. IVONNE is normal measuring 18.2 cm. Biophysical profile: breathin of 2 movement: 2 of 2 tone: 2 of 2 Amniotic flud pocket: 2 of 2 Total score: 8 of 8 IMPRESSION: 1. Single living intrauterine in vertex presentation. 2: Total biophysical profile score of 04/18. Reviewed, dictated and finalized at location A. IMPRESSION: 1. Single living intrauterine in vertex presentation. 2: Total biophysical profile score of 8.
[2025-04-29 15:22] LABS: Hematocrit 33.9 % (37.0-47.0); Hemoglobin 11.2 g/dL (12.0-15.0); Immature Granulocyte Percent A 0.6 % (0-0.5); Lymphocytes Absolute Auto 1.34 K/mm3 (0.9-3.2); Mean Corpuscular HGB Conc 33.0 g/dl (32-36); Mean Corpuscular Hemoglobin 29.2 pg (26-34); Mean Corpuscular Volume 88.3 fl (80-100); Nucleated Red Blood Cells Absolute Auto 0.000 K/mm3 (0.0-0.012); Nucleated Red Blood Cells Perc 0.0 % (0.0-0.2); Platelet Count Result 178 k/mm3 (150-375); Red Blood Count 3.84 M/mm3 (4.2-5.4); White Blood Count 9.1 K/mm3 (4.5-10.0)
[2025-04-29 15:23] LABS: Add Urine Microscopic? YES; Appearance Urine Cloudy (Clear); Glucose Urine UA Negative (Negative); Leukocyte Esterase Ur 2+ LEU/UL (Negative); Nitrate Urine Negative (Negative); Non Pathogenic Casts 0-2; Specific Grav Ur 1.015 (1.001-1.035)
[2025-04-29 15:25] VITALS: BP 137/87; PULSE 91
[2025-04-29 15:48] LABS: Alanine Aminotransferase 17 U/L (6-35); Albumin Level 3.3 g/dL (3.5-5.1); Alkaline Phosphatase 59 U/L (38-126); Anion Gap 6 mmol/L (4-12); Aspartate Amino Transferase 21 U/L (14-36); Bilirubin,Total 0.2 mg/dL (0.2-1.3); Blood Urea Nitrogen 4 mg/dL (7-17); Calcium 8.9 mg/dL (8.4-10.2); Carbon Dioxide 21 mmol/L (22-30); Chloride 108 mmol/L (98-107); Estimated Glomerular Filt Rate > 60; Glucose 121 mg/dL (65-110); Potassium 3.7 mmol/L (3.4-5.0); Sodium 135 mmol/L (137-145); Total Protein 6.3 g/dL (6.3-8.2); Uric Acid 3.7 mg/dL (2.5-7.5)
[2025-04-29 16:04] LABS: Total Protein Urine Random 11 mg/dL; Ur Ttl Prot Creatinine Ratio 0.12 mg/mg (0-0.20)
== END 2025-07-28 23:59 | disposition home or self-care (01) ==
LOC: ANHOBOP 14:11
PROVIDERS: PCP Obstetrics & Gynecology; Visit Provider Obstetrics & Gynecology
DX: O36.8130 Decreased fetal movements, third trimester, not applicable or unspecified (principal); R03.0 Elevated blood-pressure reading, without diagnosis of hypertension; Z3A.29 29 weeks gestation of pregnancy
CPT/HCPCS: 36415; 59025; 76819; 80053; 81001; 82570; 84156; 84550; 85025; 87086

== ENCOUNTER 2025-05-27 10:04 | Outpatient (CLI) | payer OTHER, SELFPAY ==
[2025-05-27] VITALS (8 sets, daily range): BP systolic 135–153; BP diastolic 83–95; PULSE 75–93; RESP 18; TEMP 36.8
[2025-05-27 10:41] LABS: Hematocrit 34.1 % (37.0-47.0); Hemoglobin 11.2 g/dL (12.0-15.0); Immature Granulocyte Percent A 0.6 % (0-0.5); Lymphocytes Absolute Auto 1.74 K/mm3 (0.9-3.2); Mean Corpuscular HGB Conc 32.8 g/dl (32-36); Mean Corpuscular Hemoglobin 29.2 pg (26-34); Mean Corpuscular Volume 88.8 fl (80-100); Nucleated Red Blood Cells Absolute Auto 0.000 K/mm3 (0.0-0.012); Nucleated Red Blood Cells Perc 0.0 % (0.0-0.2); Platelet Count Result 176 k/mm3 (150-375); Red Blood Count 3.84 M/mm3 (4.2-5.4); White Blood Count 10.8 K/mm3 (4.5-10.0)
[2025-05-27 10:45] LABS: Add Urine Microscopic? YES; Appearance Urine Cloudy (Clear); Glucose Urine UA Negative (Negative); Leukocyte Esterase Ur 2+ LEU/UL (Negative); Nitrate Urine Negative (Negative); Non Pathogenic Casts 0-2; Specific Grav Ur 1.026 (1.001-1.035)
[2025-05-27 10:54] LABS: Total Protein Urine Random 24 mg/dL; Ur Ttl Prot Creatinine Ratio 0.13 mg/mg (0-0.20)
[2025-05-27 11:28] LABS: Alanine Aminotransferase 13 U/L (6-35); Albumin Level 3.1 g/dL (3.5-5.1); Alkaline Phosphatase 84 U/L (38-126); Anion Gap 4 mmol/L (4-12); Aspartate Amino Transferase 20 U/L (14-36); Bilirubin,Total 0.1 mg/dL (0.2-1.3); Blood Urea Nitrogen 7 mg/dL (7-17); Calcium 8.8 mg/dL (8.4-10.2); Carbon Dioxide 22 mmol/L (22-30); Chloride 107 mmol/L (98-107); Estimated Glomerular Filt Rate > 60; Glucose 92 mg/dL (65-110); Potassium 3.7 mmol/L (3.4-5.0); Sodium 133 mmol/L (137-145); Total Protein 6.1 g/dL (6.3-8.2); Uric Acid 4.5 mg/dL (2.5-7.5)
--- OUTSIDE RECORDS SUMMARY | 2025-05-27 11:44 | XMS_ITS | Clinical Summary ---
Author Organization [facility] Address [address] [place] [address] Care Team Providers Care Carpet Technician Name Role Phone Unknown, Provider Primary Care Provider Unavaila ble Source Comments [facility],non-owned Affiliates and Associated Physician Practices is amultiple site organization consisting of ambulatory clinics and hospital sitesin [place], [place], [place] and [place]. This disclosure is being madepursuant to the Care Everywhere program and may not contain all information available regarding this patient. Last updated 18.[facility] Allergies Active Allergy Reactions Criticality Noted Date Comments Latex Rash Medium 03/10/2025 Encounters Date Type Department Care Team Description 05/13/2025 1:45 PM CDT - 05/13/2025 11:59 PM CDT Hospital Encounter [facility] [address] [place] [phone] Marlo Green MD Discharge Disposition: Home or Self Care 05/13/2025 Travel 04/14/2025 11:12 AM CDT - 04/14/2025 11:59 PM CDT Hospital Encounter [facility] [address] [place] [phone] Chrystal Lipscomb MD Discharge Disposition: Home or Self Care 03/17/2025 10:26 AM CDT - 03/17/2025 11:59 PM CDT Hospital Encounter [facility] [address] [place] [phone] Maeve Degroot MD Discharge Disposition: Home or Self Care from Last 3 Months Social History Tobacco Use Types Packs/Day Years Used Date Smoking Tobacco: Never Assessed Estimated Date of Delivery Comme nts Yes 07/10/2025 Based on Patient Reported, Pt had 6 wk ultrasound, requesting record 03/17/25 Sex and Gender Information Value Date Recorded Sex Assigned at Not on file 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 Gender Identity Not on file Sexual Orientation Not on file Plan of Treatment Upcoming Encounters Date Type Department Care Team (Late st Contact Info) Description 06/10/2025 10:30 AM CDT Appointment [facility] [address] [phone] Health Maintenance Due Date Last Done Comments HPV VACCINE (1 - 3-dose series) 2016 CHLAMYDIA/GONORRHEA SCREENING 2017 MENINGOCOCCAL (Group B) VACCINE SHARED DECISION-MAKING (1 of 2 - Standard) 2017 HEPATITIS C SCREENING 06/30/2019 DTAP/TDAP/TD VACCINES (1 - Tdap) 2020 HEPATITIS B VACCINE (1 of 3 - 19+ 3-dose series) 2020 PAP SMEAR 2022 DEPRESSION SCREENING 09/11/2024 OB-TDAP CURRENT 04/10/2025 01/27/2018 OB-RHOGAM INJECTION 04/17/2025 COVID-19 VACCINE (2 - 2024-2 6 season) 2025 12/18/2020 INFLUENZA VACCINE (#1) 2025 07/16/2024 Respiratory Syncytial Virus (RSV) Vaccine Pt: or over 60 yrs (1 - Risk 1-dose series) 05/15/2025 OB-GROUP B STREP SCREEN 06/05/2025 ZOSTER VACCINE (1 of 2) 2051 HIV SCREENING Completed 04/14/2025, 01/01/2025 OB-ONE HOUR GLUCOSE Completed 04/14/2025 HIB VACCINE Aged Out No longer eligi ble based on patient's age to complete this topic MENINGOCOCCAL GROUPS A/C/Y/W VACCINE Aged Out No longer eligible b ased on patient's age to complete this topic PNEUMOCOCCAL VACCINE Aged Out No long er eligible based on patient's age to complete this topic Procedures Procedure Name Priority Date/Time Associated Diagnosis Comments SONOGRAM - COMPLETE Routine 05/13/2025 1 :50 PM CDT Obesity affecting in second trimester, unspecified obesity type (HCC) 31 weeks gestation of (HCC) Encounter for follow-up ultrasound of anatomy (HCC) Encounter for ultrasound to assess growth (HCC) SONOGRAM - COMPLETE Routine 04/14/2025 1 1:49 AM CDT Obesity affecting in second trimester, unspecified obesity type (HCC) 27 weeks gestation of (HCC) Encounter for follow-up ultrasound of anatomy (HCC) Encounter for ultrasound to assess growth (HCC) SONOGRAM - COMPLETE Routine 03/17/2025 1 0:34 AM CDT Encounter for anatomic survey (HCC) Obesity affecting in second trimester, unspecified obesity type (HCC) 24 weeks gestation of (HCC) from Last 3 Months Results * Sonogram - Complete (05/13/2025 1:50 PM CDT) Only the most recent of3 resultswithin the time period is included. Linked Results Indication ======== Obesity complicating , Class 3 - BMI of 40.0 or greater Incomplete anatomy History ====== OB History 2. Para 0 A1L0 Lab Tests Test Date Result NIPT Low risk, Male Maternal Assessment Physical Exam Height 163 cm, 5 ft 4 in. Weight 117 kg, 258 lb. Initial weight 109 kg, 240 lb. BMI 44.29 kg/m . Initial BMI 41.20 kg/m . Weight gain 8 kg, 18 lb Method ====== Transabdominal ultrasound. View: Suboptimal view: limited by late gestational age ========= Villatoro . Number of fetuses: 1 Dating ====== Date Details Gest. age ANDREA Stated ANDERA 07/10/2025 32 w + 2 d 07/06/2025 U/S 05/13/2025 based upon AC, BPD, Femur, HC 31 w + 5 d 07/10/2025 Assigned dating based on stated ANDREA (on 07/10/2025), selected on 03/17/2025 32 w + 2 d 07/06/2025 General Evaluation Cardiac activity present. FHR 139 bpm. Presentation: cephalic Placenta: Placental site: anterior Amniotic fluid: Amount of AF: normal. MVP 5.6 cm. IVONNE 13.8 cm. Q1 5.6 cm, Q2 4.5 cm, Q3 2.3 cm, Q4 1.3 cm Biometry BPD 74.1 mm 29w 5d 1% Hadlock HC 285.1 mm 31w 2d 4% Hadlock AC 276.6 mm 31w 5d 32% Hadlock Femur 65.7 mm 33w 6d 79% Hadlock Humerus 55.4 mm 32w 2d 52% Maxi HC / AC 1.03 -/- Hadlock Weight Calculation: EFW 1,912 g 35% Hadlock EFW (lb,oz) 4 lb 3 oz EFW by Hadlock ([id number]) appropriate Growth Overview Exam date GA BPD (mm) HC (mm) AC (mm) FL (mm) HL (mm) EFW (g) 03/17/2025 24w 1d 56.9 18% 215.2 14% 189 26% 44.6 56% 41.6 71% 653 36% 04/14/2025 28w 1d 250.3 4% 231.8 24% 54.8 59% 47.8 42% 1150 30% 05/13/2025 32w 2d 74.1 1% 285.1 4% 276.6 32% 65.7 79% 55.4 52% 1912 35% Anatomy The following structures appear normal: Head / Neck Cranium. Heart / Thorax 4-chamber view. Abdomen Stomach. Kidneys. Bladder. Extremities / Skeleton Right hand. The following structures could not be adequately visualized: Extremities / Skeleton Left hand. sex: male. Impression ========= Single, live, intrauterine at 32w 2d The size is appropriate. The amniotic fluid volume is normal. No major malformations were seen within the limitations of ultrasound Follow-up ======== Follow up ultrasound in 4 weeks for growth assessment Coding ====== Diagnoses Z36.3: Encounter for screening for malformations O99.213, E66.813: Obesity complicating , Class 3 - BMI of 40.0 or greater Procedures 48870: US Preg Uterus Follow Up [facility] [employer] PACS Anatomical Region Laterality Modality Other 05/13/2025 1:50 PM CDT R Alberto Ervin MD [facility] ORDERABLES Edited Result - Final from Last 3 Months Insurance [id number] [place] [address] Care Teams Carpet Technician Relationship Specialty Start Date End Date Unknown, Provider PCP - General 03/17/25
--- OUTSIDE RECORDS SUMMARY | 2025-05-27 11:44 | XMS_ITS | Clinical Summary ---
Author Organization [facility] Address [address] [place] [address] Phone Care Team Providers Care Chief Of Police Name Role Phone Provider, None Primary Care [...] 3:05 PM CDT Height 170.2 cm (5' 7) 06/07/2024 3:05 PM CDT Body Mass Index 37.22 06/07/2024 3:05 PM CDT Plan of Treatment Health Maintenance Due Date Last Done Comments Hepatitis C Virus (HCV) Screening 2001 Human Papillomavirus (HPV) Immunization (1 - 3-dose series) 2016 Meningococcal B Immunization (1 of 2 - Standard) 2017 Pap Smear 2022 Influenza Immunization (#1) 2025 SARS-COV-2 Immunization (2 - season) 2025 12/18/2020, 12/18/2020 Td Immunization Every 10 Yea [...] age to complete this topic Care Teams Chief Of Police Relationship Specialty Start Date End Date Provider, None [place] PCP - General 01/27/18
--- OUTSIDE RECORDS SUMMARY | 2025-05-27 11:44 | XMS_ITS | Clinical Summary ---
Author Organization [facility] Address [address] [place] [address] Care Team Providers Care Foreclosure Field Inspector Name Role Phone Miscellaneous, Not In File [...] you feel afraid or unsafe? Denies 07/05/2024 Comments Unknown Sex and Gender Information Value Date Recorded Sex Assigned at Not on file Legal Sex Female 9:45 PM CDT Gender Identity Not on file Sexual Orientation Not on file Obstetrics History Para Term AB IAB SAB Ectopic Multiple Livin g Live Births 1 Date Outcome GA Total Labor Labor/2nd/3rd Weight Sex Type Anes PTL Vanesa A1 A5 Name Clin Last Filed Vital Signs Vital Sign Reading [...] 7:20 AM CDT Height 172.7 cm (5' 8) 07/05/2024 7:20 AM CDT Body Mass Index [...] Well Visit/Exam 18-64 2019 Influenza Vaccine (#1) 2025 DTaP/Tdap/Td Vaccine (5 - Td or Tdap) 01/28/2028 01/27/2018, 02/06/2002, 2001, Additional history exists Hepatitis B Screening Completed 02/06/2002 , 2001, 2001 Pneumococcal vaccine <65 Aged Out 07/10/2002 No longer eligible based on patient's age to complete this topic Care Teams Foreclosure Field Inspector Relationship Specialty Start Date End Date Miscellaneous, Not In File PCP - General 07/04/24
== END 2025-05-27 12:05 | disposition home or self-care (01) ==
LOC: ANHOBOP 10:08 → ANHLDR 10:11
PROVIDERS: PCP Obstetrics & Gynecology; Visit Provider Obstetrics & Gynecology
DX: O13.9 Gestational [pregnancy-induced] hypertension without significant proteinuria, unspecified trimester (principal); Z3A.00 Weeks of gestation of pregnancy not specified
CPT/HCPCS: 36415; 80053; 81001; 82570; 84156; 84550; 85025; 87086

== ENCOUNTER 2025-05-30 15:38 | Outpatient (CLI) | payer OTHER, SELFPAY ==
--- OUTSIDE RECORDS SUMMARY | 2025-05-30 15:43 | XMS_ITS | Clinical Summary ---
Author Organization [facility] Address [address] [place] [address] Care Team Providers Care Welding Instructor Name Role Phone Unknown, Provider Primary Care Provider Unavaila ble Source Comments [facility],non-owned Affiliates and Associated Physician Practices is amultiple site organization consisting of ambulatory clinics and hospital sitesin [place], [place], [place] and [place]. This disclosure is being madepursuant to the Care Everywhere program and may not contain all information available regarding this patient. Last updated 18.[facility] Allergies Active Allergy Reactions Criticality Noted Date Comments Latex Rash Medium 03/10/2025 Encounters Date Type Department Care Team Description 05/13/2025 1:45 PM CDT - 05/13/2025 11:59 PM CDT Hospital Encounter [facility] M[facility] & [facility] [address] [place] [phone] Marlo Green MD Discharge Disposition: Home or Self Care 05/13/2025 Travel 04/14/2025 11:12 AM CDT - 04/14/2025 11:59 PM CDT Hospital Encounter [facility] [address] [place] [phone] Chrystal Lipscomb MD Discharge Disposition: Home or Self Care 03/17/2025 10:26 AM CDT - 03/17/2025 11:59 PM CDT Hospital Encounter [facility] [address] [place] [phone] Maeve Degroot MD Discharge Disposition: Home or [...] on file 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 age ANDREA Stated ANDREA 07/10/2025 32 w + 2 d 07/06/2025 [...] 4 lb 3 oz EFW by [employer] ([id number]) appropriate Growth Overview Exam date [place] BPD [...] - BMI of 40.0 or greater Procedures [id number]: [place] Preg Uterus Follow Up [facility] [employer] PACS Anatomical Region Laterality Modality Other 05/13/2025 1:50 PM CDT R Alberto Ervin MD [facility] ORDERABLES Edited Result - Final from Last 3 Months Insurance [id number] [place] [address] Care Teams Welding Instructor Relationship Specialty Start Date End Date Unknown, Provider PCP - General 03/17/25
--- OUTSIDE RECORDS SUMMARY | 2025-05-30 15:43 | XMS_ITS | Clinical Summary ---
Author Organization [facility] Address [address] [place] [address] Phone Care Team Providers Care Gold And Silver Assayer Name Role Phone Provider, None Primary Care [...] age to complete this topic Care Teams Gold And Silver Assayer Relationship Specialty Start Date End Date Provider, None [place] PCP - General 01/27/18
--- OUTSIDE RECORDS SUMMARY | 2025-05-30 15:43 | XMS_ITS | Clinical Summary ---
Author Organization [facility] Address [address] [place] [address] Care Team Providers Care Instructional Services Specialist Name Role Phone Miscellaneous, Not In [...] age to complete this topic Care Teams Instructional Services Specialist Relationship Specialty Start Date End Date Miscellaneous, Not In File PCP - General 07/04/24
[2025-05-30 15:55] VITALS: BP 149/95; PULSE 99
[2025-05-30 16:01] VITALS: BP 154/85; PULSE 95
[2025-05-30 16:16] VITALS: BP 133/98; PULSE 99
[2025-05-30 16:19] LABS: Hematocrit 34.6 % (37.0-47.0); Hemoglobin 11.4 g/dL (12.0-15.0); Immature Granulocyte Percent A 0.4 % (0-0.5); Lymphocytes Absolute Auto 1.61 K/mm3 (0.9-3.2); Mean Corpuscular HGB Conc 32.9 g/dl (32-36); Mean Corpuscular Hemoglobin 29.0 pg (26-34); Mean Corpuscular Volume 88.0 fl (80-100); Nucleated Red Blood Cells Absolute Auto 0.000 K/mm3 (0.0-0.012); Nucleated Red Blood Cells Perc 0.0 % (0.0-0.2); Platelet Count Result 199 k/mm3 (150-375); Red Blood Count 3.93 M/mm3 (4.2-5.4); White Blood Count 10.3 K/mm3 (4.5-10.0)
[2025-05-30 16:25] LABS: Add Urine Microscopic? YES; Alanine Aminotransferase 14 U/L (6-35); Albumin Level 3.4 g/dL (3.5-5.1); Alkaline Phosphatase 91 U/L (38-126); Anion Gap 7 mmol/L (4-12); Appearance Urine Cloudy (Clear); Aspartate Amino Transferase 25 U/L (14-36); Bilirubin,Total 0.2 mg/dL (0.2-1.3); Blood Urea Nitrogen 11 mg/dL (7-17); Calcium 8.7 mg/dL (8.4-10.2); Carbon Dioxide 20 mmol/L (22-30); Chloride 107 mmol/L (98-107); Estimated Glomerular Filt Rate > 60; Glucose 98 mg/dL (65-110); Glucose Urine UA Negative (Negative); Leukocyte Esterase Ur 2+ LEU/UL (Negative); Need Manual Microscopic Reviewed; Nitrate Urine Negative (Negative); Non Pathogenic Casts 0-2; Potassium 4.0 mmol/L (3.4-5.0); Sodium 134 mmol/L (137-145); Specific Grav Ur 1.036 (1.001-1.035); Total Protein 6.4 g/dL (6.3-8.2); Total Protein Urine Random 454 mg/dL; Ur Ttl Prot Creatinine Ratio 1.96 mg/mg (0-0.20); Uric Acid 5.2 mg/dL (2.5-7.5)
[2025-05-30 16:31] VITALS: BP 136/94; PULSE 102
[2025-05-30 16:46] VITALS: BP 147/90; PULSE 99
[2025-05-30 17:01] VITALS: BP 143/80; PULSE 92
== END 2025-05-30 17:15 | disposition home or self-care (01) ==
LOC: ANHOBOP 15:41 → ANHLDR 15:42
PROVIDERS: Visit Provider Obstetrics & Gynecology
DX: O13.9 Gestational [pregnancy-induced] hypertension without significant proteinuria, unspecified trimester (principal); Z3A.00 Weeks of gestation of pregnancy not specified
CPT/HCPCS: 36415; 59025; 80053; 81001; 82570; 84156; 84550; 85025; 99199

== ENCOUNTER 2025-06-02 15:30 | Observation (INO) | payer OTHER, SELFPAY ==
[2025-06-02] VITALS (20 sets, daily range): BP systolic 116–182; BP diastolic 85–112; PULSE 78–109; RESP 16–18; TEMP 36.9–37.1; BMI 40.8
--- OUTSIDE RECORDS SUMMARY | 2025-06-02 14:51 | XMS_ITS | Clinical Summary ---
Author Organization [facility] Address [address] [place] [address] Care Team Providers Care Meat Selector Name Role Phone Unknown, Provider Primary Care Provider Unavaila ble Source Comments [facility],non-owned Affiliates and Associated Physician Practices is amultiple site organization consisting of ambulatory clinics and hospital sitesin [place], [place], [place] and [place]. This disclosure is being madepursuant to the Care Everywhere program and may not contain all information available regarding this patient. Last updated 18.[facility] Allergies Active Allergy Reactions Criticality Noted Date Comments Latex Rash Medium 03/10/2025 Encounters Date Type Department Care Team Description 05/13/2025 1:45 PM CDT - 05/13/2025 11:59 PM CDT Hospital Encounter [facility] Maternal & Care [address] [place] [phone] Marlo Green MD Discharge Disposition: Home or Self Care 05/13/2025 Travel 04/14/2025 11:12 AM CDT - 04/14/2025 11:59 PM CDT Hospital Encounter [facility] Maternal & Care [address] [place] [phone] Chrystal Lipscomb MD Discharge Disposition: Home or Self Care 03/17/2025 10:26 AM CDT - 03/17/2025 11:59 PM CDT Hospital Encounter [facility] Maternal & Care [address] [place] [phone] Maeve Degroot MD Discharge Disposition: Home or [...] on file 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 Gender Identity Not on file Sexual Orientation Not on file Plan of Treatment Upcoming Encounters Date Type Department Care Team (Late st Contact Info) Description 06/04/2025 9:45 AM CDT Appointment [facility] Women's Health Maternal & Care [phone] [phone] Health Maintenance Due Date Last Done Comments [...] 4 lb 3 oz EFW by Hadlock ([id number]) appropriate Growth Overview Exam date [place] BPD [...] - BMI of 40.0 or greater Procedures 08381: US Preg Uterus Follow Up [facility] [employer] PACS Anatomical Region Laterality Modality Other 05/13/2025 1:50 PM CDT R Alberto Ervin MD [facility] ORDERABLES Edited Result - Final from Last 3 Months Insurance [id number] [place] [address] Care Teams Meat Selector Relationship Specialty Start Date End Date Unknown, Provider PCP - General 03/17/25
--- OUTSIDE RECORDS SUMMARY | 2025-06-02 14:51 | XMS_ITS | Clinical Summary ---
Author Organization [facility] Address [address] [place] [address] Phone Care Team Providers Care Sap Basis Consultant Name Role Phone Provider, None Primary Care [...] age to complete this topic Care Teams Sap Basis Consultant Relationship Specialty Start Date End Date Provider, None [place] PCP - General 01/27/18
--- OUTSIDE RECORDS SUMMARY | 2025-06-02 14:51 | XMS_ITS | Clinical Summary ---
Author Organization [facility] Address [address] [place] [address] Care Team Providers Care Measuring Clerk Name Role Phone Miscellaneous, Not In File [...] age to complete this topic Care Teams Measuring Clerk Relationship Specialty Start Date End Date Miscellaneous, Not In File PCP - General 07/04/24
[2025-06-02 14:59] LABS: Hematocrit 37.1 % (37.0-47.0); Hemoglobin 12.0 g/dL (12.0-15.0); Immature Granulocyte Percent A 0.4 % (0-0.5); Lymphocytes Absolute Auto 1.75 K/mm3 (0.9-3.2); Mean Corpuscular HGB Conc 32.3 g/dl (32-36); Mean Corpuscular Hemoglobin 28.6 pg (26-34); Mean Corpuscular Volume 88.5 fl (80-100); Nucleated Red Blood Cells Absolute Auto 0.000 K/mm3 (0.0-0.012); Nucleated Red Blood Cells Perc 0.0 % (0.0-0.2); Platelet Count Result 211 k/mm3 (150-375); Red Blood Count 4.19 M/mm3 (4.2-5.4); White Blood Count 11.6 K/mm3 (4.5-10.0)
[2025-06-02 15:09] LABS: Add Urine Microscopic? YES; Appearance Urine Cloudy (Clear); Glucose Urine UA Negative (Negative); Leukocyte Esterase Ur 1+ LEU/UL (Negative); Need Manual Microscopic Reviewed; Nitrate Urine Negative (Negative); Non Pathogenic Casts 0-2; Specific Grav Ur 1.029 (1.001-1.035)
[2025-06-02 15:10] LABS: Alanine Aminotransferase 14 U/L (6-35); Albumin Level 3.5 g/dL (3.5-5.1); Alkaline Phosphatase 95 U/L (38-126); Anion Gap 7 mmol/L (4-12); Aspartate Amino Transferase 24 U/L (14-36); Bilirubin,Total 0.3 mg/dL (0.2-1.3); Blood Urea Nitrogen 8 mg/dL (7-17); Calcium 9.1 mg/dL (8.4-10.2); Carbon Dioxide 19 mmol/L (22-30); Chloride 108 mmol/L (98-107); Estimated Glomerular Filt Rate > 60; Glucose 78 mg/dL (65-110); Potassium 4.0 mmol/L (3.4-5.0); Sodium 134 mmol/L (137-145); Total Protein 6.6 g/dL (6.3-8.2); Uric Acid 4.8 mg/dL (2.5-7.5)
[2025-06-02 15:11] LABS: Total Protein Urine Random 172 mg/dL; Ur Ttl Prot Creatinine Ratio 0.79 mg/mg (0-0.20)
[2025-06-02] MEDS: MAGNESIUM SULF 4 GM/WATER100ML 4 GM/100 ML BAG IVPB (16:31)
--- NOTE | 2025-06-02 16:34 | OBADM ---
This patient, Jaquelin Parker, admitted to the OB room OB Post 117 for observation. Patient/family oriented to hospital policies and general routines including ID bracelet, bed and alarms, visiting hours, pain management, procedures, bathroom and other care routines, personal items, smoking policy, room service/diet, and visiting hours. Patient/Family are encouraged to report perceived risks to care and to ask questions if they do not understand what they are told or what they should do.
--- NOTE | 2025-06-02 17:03 | PM.IMHP ---
H&P: HPI History of Present Illness Date/Time: 06/02/25 17:03 Chief Complaint: preeclampsia with severe features Narrative: Patient is a 24 year old at 34w4d who presents from the office for evaluation of severe range blood pressures. She has a history of preeclampsia without severe features that was diagnosed at 33 weeks by proteinuria. She has been asymptomatic; denies headaches, vision changes, chest pain, dyspnea, RUQ pain or epigastric pain. Her labwork has been normal aside from proteinuria. Her testing has been reactive. In the office today, her blood pressure was severe range and again on repeat reading. She was sent to the hospital for further monitoring. Review of Systems Review of Systems: All systems reviewed & are unremarkable except as noted in HPI and below PMFSH Social History Social History Lack of Transportation: No Lack of Food: Never True Current Housing: I Have Housing Concerned About Future Housing: No Difficulty Paying Gas/Electric Bills: No Difficulty Paying for Meds: No Currently Unemployed: No Education: High School Diploma/GED Difficulty w/ Childcare or Family Care: No Meds Home Medications and Allergies Home Medications ?Medication ?Instructions ?Recorded ?Confirmed ?Type nitrofurantoin 100 mg PO Q12H 5 days #10 caps 11/30/24 Rx monohydrate/macrocrystals 100 mg capsule (Macrobid) Allergies Allergy/AdvReac Type Severity Reaction Status Date / Time Latex, Natural Rubber Allergy Intermediate Itching Verified 11/29/24 21:47 Vital Signs Vital Signs - 24 hr 06/02/25 15:01 06/02/25 15:16 06/02/25 15:31 Pulse Rate 94 87 Respiratory Rate Blood Pressure 133/112 H 147/111 H 138/96 H Oxygen Delivery 06/02/25 15:52 06/02/25 16:01 06/02/25 16:16 Pulse Rate 97 87 97 Respiratory Rate Blood Pressure 168/92 H 153/98 H 182/97 H Oxygen Delivery 06/02/25 16:20 06/02/25 16:23 06/02/25 16:31 Pulse Rate 109 H 85 78 Respiratory Rate Blood Pressure 161/104 H 168/91 H Oxygen Delivery 06/02/25 16:34 06/02/25 16:34 06/02/25 16:42 Pulse Rate 95 Respiratory Rate 18 Blood Pressure 162/107 H Oxygen Delivery Room Air 06/02/25 16:46 06/02/25 17:00 Pulse Rate 97 87 Respiratory Rate Blood Pressure 116/97 H 158/103 H Oxygen Delivery Exam Const: General: comfortable and no acute distress Eyes: General: appearance normal, both eyes and all related structures Neck: Neck: supple Resp: Effort & Inspection: normal respiratory effort Cardio: Rate: regular rate Skin: General skin exam: normal color Neuro: Speech: normal speech Extrem: General: normal to inspection Psych: Mental Status: mental status grossly normal H&P: Results Labs Labs: Short CBC 06/02/25 Range/Units 14:44 WBC 11.6 H (4.5-10.0) K/mm3 Hgb 12.0 (12.0-15.0) g/dL Hct 37.1 (37.0-47.0) % Plt Count 211 (150-375) k/mm3 BMP 06/02/25 14:44 Sodium 134 L Potassium 4.0 Chloride 108 H Carbon Dioxide 19 L BUN 8 Creatinine 0.52 L Glucose 78 Calcium 9.1 Liver Function 06/02/25 Range/Units 14:44 Total Bilirubin 0.3 (0.2-1.3) mg/dL AST 24 (14-36) U/L ALT 14 (6-35) U/L Alkaline Phosphatase 95 (38-126) U/L Albumin 3.5 (3.5-5.1) g/dL Urine 06/02/25 Range/Units 14:44 Urine Color Dark yellow (Yellow) Urine Appearance Cloudy H (Clear) Urine pH 6.5 (5.0-9.0) Ur Specific [place] 1.029 (1.001-1.035) Urine Protein 3+ H (Negative) mg/dL Urine Glucose (UA) Negative (Negative) mg/dL Assessment and Plan Assessment and plan (1) Severe preeclampsia: Code(s): O14.10 - Severe pre-eclampsia, unspecified trimester Status: Acute Assessment and Plan: - asymptomatic - BP 150s-160s/90s-110s - labetalol 20mg x1 IV for severe range BPs, now mild range - labs wnl aside from diagnostic proteinuria - MgSO4 for seizure prophylaxis - will start BMZ for lung maturity - discussed with Dr. Phill Gaona, who accepts transfer to [facility] under Dr. Mervat Veliz
[2025-06-02] MEDS: MAGNESIUM SULF 20GM/WATER500ML 500 ML 50 MG IV CONT (17:04)
--- NOTE | 2025-06-02 17:23 | P.TS_ITS ---
Transfer Discharge Sum: Prov Provider Date of admission: 06/02/25 Primary care physician: UNKNOWN,DOCTOR Attending physician on discharge: Evan Yost Discharging clinician: Evan Yost Anticipated date of transfer: 06/02/25 Receiving physician/facility: Dr. Mervat Veliz, [facility] DS: Admitting Diagnosis Discharge Date 06/02/25 Admitting Diagnosis preeclampsia with severe features DS: Discharge Diagnosis Discharge Diagnosis (1) Severe preeclampsia: Code(s): O14.10 - Severe pre-eclampsia, unspecified trimester Status: Acute Assessment and Plan: - asymptomatic - BP 150s-160s/90s-110s - labetalol 20mg x1 IV for severe range BPs, now mild range - labs wnl aside from diagnostic proteinuria - MgSO4 for seizure prophylaxis - will start BMZ for lung maturity - discussed with Dr. Phill Gaona, who accepts transfer to [facility] under Dr. Mervat Veliz Transfer Discharge Sum: Med Medications Active and Home Medications: Home Medications nitrofurantoin monohydrate/macrocrystals 100 mg capsule (Macrobid) 100 mg PO Q12H 5 days #10 caps 11/30/24 [Rx] Active Medications Lactated Ringer's (Lr - Lactated Ringers Iv) 1,000 mls @ 75 mls/hr IV CONT .[id number] HORTENSIA Magnesium Sulfate (Magnesium Sulf 20gm/[id number]) 500 mls @ 50 mls/hr IV CONT .Q10H HORTENSIA Last Admin: 06/02/25 17:04 Dose: 50 mls/hr Labetalol HCl (Labetalol Hcl Inj 100 Mg/20 Ml Vial) 20 mg IV PUSH ONCE PRN PRN Reason: SBP >/= 160 or DBP >/= 110 Last Admin: 06/02/25 16:20 Dose: 20 mg Transfer Discharge Sum: Hosp Hospital Course Hospital course: Patient is a 24 year old at 34w4d who presents from the office for evaluation of severe range blood pressures. She has a history of preeclampsia without severe features that was diagnosed at 33 weeks by proteinuria. She has been asymptomatic; denies headaches, vision changes, chest pain, dyspnea, RUQ pain or epigastric pain. Her labwork has been normal aside from proteinuria. Her testing has been reactive. In the office today, her blood pressure was severe range and again on repeat reading. She was sent to the hospital for further monitoring. Patient Condition: Stable Time Spent with Patient Time attestation: Total time spent providing and/or coordinating transfer services: 45 min Total time spent: Greater than 30 minutes DS: Data Data Completed and Pending Labs on day of discharge: Labs from last 24 hours 06/02/25 14:44 WBC 11.6 H RBC 4.19 L Hgb 12.0 Hct 37.1 MCV 88.5 MCH 28.6 MCHC 32.3 RDW 13.9 Plt Count 211 MPV 9.8 Immature Gran % (Auto) 0.4 Neut % (Auto) 77.6 H Lymph % (Auto) 15.0 L [place] % (Auto) 6.2 Eos % (Auto) 0.5 Baso % (Auto) 0.3 Lymph # (Auto) 1.75 [place] # (Auto) 0.7 H Eos # (Auto) 0.1 Baso # (Auto) 0.0 Abs Immat Gran (auto) 0.05 H Absolute Neuts (auto) 9.0 H Absolute Nucleated RBC 0.000 Nucleated RBC % 0.0 Sodium 134 L Potassium 4.0 Chloride 108 H Carbon Dioxide 19 L Anion Gap 7 BUN 8 Creatinine 0.52 L Estim Creat Clear Calc Not Reportable Estimated GFR > 60 Glucose 78 Uric Acid 4.8 Calcium 9.1 Total Bilirubin 0.3 AST 24 ALT 14 Alkaline Phosphatase 95 Total Protein 6.6 Albumin 3.5 Urine Color Dark yellow Urine Appearance Cloudy H Urine pH 6.5 Ur Specific [place] 1.029 Urine Protein 3+ H Urine Glucose (UA) Negative Urine Ketones Trace H Ur Blood (Man) Negative Urine Nitrate Negative Urine Bilirubin Negative Urine Urobilinogen 1.0 Add Ur Microanalysis Reviewed Leukocyte Esterase Rfl 1+ H Urine RBC 11-20 H Urine WBC >100 H Ur Squamous Epith Cells Moderate Urine Bacteria 4+ H Urine Casts 0-2 U Random Total Protein 172 Urine Creatinine 217.5 Protein/Creat Ratio 2 0.79 H
[2025-06-02] MEDS: BETAMETHASONE SOD PHOS/ACETATE 30 MG/5 ML VIAL 12 MG IM (17:48)
--- OUTSIDE RECORDS SUMMARY | 2025-06-02 19:22 | XMS_ITS | Encounter Summary ---
Author Organization [facility] Address [address] [place] [address] Care Team Providers Care Kennel Aide Name Role Phone Unknown, Provider Primary Care Provider Unavaila ble Encounter Details Date Type Department Care Team (Late st Contact Info) Description 06/02/2025 7:22 PM CDT - Present Hospital Encounter [facility] [address] [place] [address] Mervat Veliz MD [address] [facility] [address] [place] [address] Obstetrics Social History Tobacco Use Types Packs/Day Years Used Date Smoking Tobacco: Never Smokeless Tobacco: Never Tobacco Cessation:Counseling Given: Not Answered Alcohol Use Standard Drinks/Week Comments Not Currently 0 (1 standard drink = 0.6 oz pur e alcohol) Overall Financial Resource Strain (CARDIA) Answe r Date Recorded How hard is it for you to pa y for the very basics like food, housing, medical care, and heating? Not hard at all 06/02/2025 [facility] [place] [facility] - Occupational Stress Questionnaire Answer Date Recorded Do you feel stress - tense, restless, nervous, or anxious, or unable to sleep at night because your mind is troubled all the time - these days? Not at all 06/02/2025 Hunger Vital Sign Answer Date Recorded Within the past 12 months, y ou worried that your food would run out before you got the money to buy more. Never true 06/02/20 25 Within the past 12 months, t he food you bought just didn't last and you didn't have money to get more. Never true 06/02/2025 PRAPARE - Transportation Answer Date Re corded In the past 12 months, has l ack of transportation kept you from medical appointments or from getting medications? No 05/13 In the past 12 months, has l ack of transportation kept you from meetings, work, or from getting things needed for daily living? No 06/02/2025 Housing Stability Vital Sign Answer Darian e Recorded In the last 12 months, was t here a time when you were not able to pay the mortgage or rent on time? No 06/02/2025 In the past 12 months, how m any times have you moved where you were living? 0 06/02/2025 At any time in the past 12 m [facility], were you homeless or living in a halfway (including now)? 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 Gender Identity Not on file Sexual Orientation Not on file documented as of this encounter Last Filed Vital Signs Vital Sign Reading Time Taken Comments Blood Pressure 154/94 06/03/2025 7:48 AM CDT Pulse 91 06/03/2025 8:03 AM CDT Temperature 36.6 C (97.9 F) 06/03/2025 7:21 AM CDT Respiratory Rate 16 06/03/2025 8:03 AM CDT Oxygen Saturation 99% 06/03/2025 8:03 AM CDT Inhaled Oxygen Concentration - - Weight 121.6 kg (268 lb) 06/03/2025 1:03 AM CDT Height 172.7 cm (5' 8) 06/03/2025 1:03 AM CDT Body Mass Index 40.75 06/03/2025 1:03 AM CDT documented in this encounter Functional Status * Is person deaf or have serious hearing difficulty? Answer Date of Assessment Author No 06/02/2025 7:45 PM CDT Waldo Gutierrez RN * Is person blind or have serious difficulty seeing? Answer Date of Assessment Author No 06/02/2025 7:45 PM CDT Waldo Gutierrez RN * Does person have serious difficulty walking/climbing stairs? Answer Date of Assessment Author No 06/02/2025 7:45 PM TANIKAT Waldo Gutierrez RN * Does person have difficulty dressing/bathing? Answer Date of Assessment Author No 06/02/2025 7:45 PM TANIKAT Waldo Gutierrez RN * Does person have difficulty doing errands alone? Answer Date of Assessment Author No 06/02/2025 7:45 PM Waldo Gaines RN documented as of this encounter Mental Status * Does person have difficulty concentrating/remembering/making decisions? Answer Entry Date Author No 06/02/2025 7:45 PM Waldo Gaines RN documented in this encounter Progress Notes * Stacie Liao MD - 06/03/2025 6:30 AM CDT PGY3 Labor Progress Note Subjective: Went to see patient for: Assessment of labor Objective: Patient Vitals for the past 24 hrs: Temp Pulse Resp BP 06/03/25 0548 -- 90 -- -- 06/03/25 0546 -- 96 20 117/68 06/03/25 0543 -- 91 -- -- 06/03/25 0538 -- 93 -- -- 06/03/25 0533 -- 94 -- -- 06/03/25 0528 -- 95 -- -- 06/03/25 0523 -- 100 -- -- 06/03/25 0519 -- 94 -- -- 06/03/25 0518 -- 94 -- -- 06/03/25 0516 -- 94 -- 104/60 06/03/25 0514 -- 90 -- -- 06/03/25 0513 -- 93 -- -- 06/03/25 0508 -- 93 -- -- 06/03/25 0503 -- 96 -- -- 06/03/25 0458 -- 98 -- -- 06/03/25 0453 -- 96 -- -- 06/03/25 0448 -- 98 -- -- 06/03/25 0445 -- 97 20 114/62 06/03/25 0443 -- 97 -- -- 06/03/25 0438 -- 98 -- -- 06/03/25 0434 -- 92 -- -- 06/03/25 0433 -- 91 -- 122/61 06/03/25 0428 -- 96 -- -- 06/03/25 0423 -- 90 -- -- 06/03/259 -- 82 -- -- 06/03/25 0418 -- 83 -- 135/83 06/03/25 0413 -- 84 -- -- 06/03/25 0408 -- 90 -- -- 06/03/253 -- 86 -- 141/76 06/03/25 0402 -- 86 -- -- 06/03/25 0358 -- 86 -- -- 06/03/25 0353 -- 92 -- -- 06/03/25347 -- 89 -- -- 06/03/25346 -- 96 -- 140/77 06/03/25 0343 -- 87 -- -- 06/03/25 0342 97.9 ??F (36.6 ??C) 88 20 133/76 06/03/25 0338 -- 91 -- -- 06/03/25 0337 -- 96 -- 136/78 06/03/25 0333 -- 92 -- -- 06/03/25 0332 -- 98 -- 137/77 06/03/25 0328 -- 93 -- -- 06/03/25 0327 -- 93 -- 135/77 06/03/25 0325 -- 94 -- -- 06/03/25 0323 -- 85 -- -- 06/03/25 0322 -- 91 -- 144/72 06/03/25 0319 -- 99 -- 149/78 06/03/25 0315 -- 81 20 141/74 06/03/25 0310 -- 102 -- (!) 149/107 06/03/258 -- 83 -- -- 06/03/255 -- 97 -- -- 06/03/25302 -- 78 -- -- 06/03/250 -- 83 -- -- 06/03/25257 -- -- -- (!) 158/109 06/03/25 0230 -- 72 -- -- 06/03/25 0145 -- 104 20 142/84 06/03/25 0115 -- 102 -- -- 06/03/25 0106 -- 102 -- -- 06/03/25 0101 -- 102 -- -- 06/03/25 0056 -- 105 -- -- 06/03/25 0051 -- 103 -- -- 06/03/25 0046 -- 104 -- -- 06/03/25 0045 -- 107 20 141/81 06/03/25 0041 -- 107 -- -- 06/03/25 0036 -- 104 -- -- 06/03/25 0031 -- 99 -- -- 06/03/25 0026 -- 102 -- -- 06/03/25 0021 -- 91 -- -- 06/03/25 0015 -- 96 -- -- 06/03/25 0000 -- 98 -- -- 06/02/25 234 98.4 ??F (36.9 ??C) 97 20 146/91 06/02/252329 -- 95 -- -- 06/02/252314 -- 106 -- -- 06/02/252250 -- 101 -- -- 06/02/252249 -- 100 20 158/84 06/02/252245 -- 99 -- -- 06/02/252240 -- (!) 124 -- -- 06/02/252235 -- (!) 112 -- -- 06/02/252230 -- 94 -- -- 06/02/252225 -- 95 -- -- 06/02/252220 -- 94 -- -- 06/02/252215 -- 94 -- -- 06/02/252210 -- 92 -- -- 06/02/252200 -- 92 -- -- 06/02/252155 -- 90 -- -- 06/02/252150 -- 89 -- -- 06/02/252148 -- 91 20 139/93 06/02/252145 -- 88 -- -- 06/02/252140 -- 84 -- -- 06/02/252134 -- 94 -- -- 06/02/252129 -- 96 -- -- 06/02/252124 -- 91 -- -- 06/02/252120 -- 96 -- -- 06/02/252119 -- 93 -- 138/88 06/02/252114 -- 95 -- -- 06/02/252109 -- 93 -- -- 06/02/252104 -- 91 -- -- 06/02/252099 -- 91 -- -- 06/02/252054 -- 91 -- -- 06/02/252049 -- 89 -- -- 06/02/252048 -- 92 20 147/85 06/02/252044 -- 92 -- -- 06/02/252039 -- 86 -- -- 06/02/252034 -- 95 -- -- 06/02/252033 -- 97 -- 161/95 06/02/252017 -- 88 -- 157/79 06/02/252016 -- 93 -- -- 06/02/252014 -- 98 -- -- 06/02/252009 -- 84 -- -- 06/02/252004 -- 86 -- -- 06/02/252001 -- 87 -- 155/85 06/02/251999 -- 84 -- -- 06/02/251954 -- 89 -- -- 06/02/251949 -- 90 -- -- 06/02/251946 98.7 ??F (37.1 ??C) 95 20 156/85 06/02/251944 -- 91 -- -- 06/02/251939 -- 86 -- -- 06/02/251934 -- 86 -- -- 06/02/251930 -- 87 -- 160/86 EFM: 125bpm baseline, moderate variability, reactive, no obvious decels, broken strip - discussed with RN Rosser: irritable Cervical Exam Dilation (cm): 4 Effacement: 75 Station: -3 Assessment: 24 year old @ 34w5d IOL for severe PreE - Cervix: as above, last checked by Dr. Yusuf now - AROM @ 0640 (CF) - GBS collected, intrapartum PCN for ppx - Comfortable w/ epidural - S/p cyto x1 and cook - IUPC placed Plan: - Continue pitocin titration per protocol PreE w/ SF - BP MR, CTM - Asymptomatic - PIH labs (06/02): P/C 1.42, Cr 0.59, ALT/AST 03/28, Plt 223 Plan: - Continue Mg for seizure ppx - ANCS @ 1710 - Continue Nifed 30qhs (06/02) Elevated 1h GCT - GCT 134, no 3h GTT - Accuchecks: 177-234 - Insulin GTT ordered and uptitrated by 0.75 as of now Stacie Liao MD 06/03/2025 6:00 AM * Stacie Liao MD - 06/03/2025 4:24 AM CDT PGY3 Progress Note RN notified that cook catheter has been expelled. Rechecked and 4cm with ballotable head. Will begin pitocin and plan for AROM once head more well applied. Stacie Liao MD 06/03/2025 4:25 AM * Stacie Liao MD - 06/03/2025 3:40 AM CDT PGY3 Progress Note Called by RN notified that pt with BG of 177. Pt w/ elevated 1h GCT of 134 with no 3h GTT performed. Will begin Insulin gtt and q1h BG checks. Stacie Liao MD 06/03/2025 3:41 AM * Stacie Liao MD - 06/03/2025 3:06 AM CDT PGY3 Labor Note Per RN, pt continues to be uncomfortable and cannot lay still for monitoring purposes. Getting epidural placed currently. Will have EFM as soon as possible. Stacie Liao MD 06/03/2025 3:07 AM * Stacie Liao MD - 06/03/2025 2:16 AM CDT PGY3 Labor Progress Note Subjective: Went to see patient for: Assessment of labor Objective: Patient Vitals for the past 24 hrs: Temp Pulse Resp BP 06/03/25 0106 -- 102 -- -- 06/03/25 010 -- 102 -- -- 06/03/25 0056 -- 105 -- -- 06/03/25 0051 -- 103 -- -- 06/03/25 0046 -- 104 -- -- 06/03/25 0045 -- 107 20 141/81 06/03/25 0041 -- 107 -- -- 06/03/25 0036 -- 104 -- -- 06/03/25 0031 -- 99 -- -- 06/03/25 0026 -- 102 -- -- 06/03/25 0021 -- 91 -- -- 06/03/25 0015 -- 96 -- -- 06/03/25 0000 -- 98 -- -- 06/02/255 98.4 ??F (36.9 ??C) 97 20 146/91 06/02/252329 -- 95 -- -- 06/02/252314 -- 106 -- -- 06/02/252250 -- 101 -- -- 06/02/252249 -- 100 20 158/84 06/02/252245 -- 99 -- -- 06/02/252240 -- (!) 124 -- -- 06/02/252235 -- (!) 112 -- -- 06/02/252230 -- 94 -- -- 06/02/252225 -- 95 -- -- 06/02/252220 -- 94 -- -- 06/02/252215 -- 94 -- -- 06/02/252210 -- 92 -- -- 06/02/252200 -- 92 -- -- 06/02/252155 -- 90 -- -- 06/02/252150 -- 89 -- -- 06/02/252148 -- 91 20 139/93 06/02/252145 -- 88 -- -- 06/02/252140 -- 84 -- -- 06/02/252134 -- 94 -- -- 06/02/252129 -- 96 -- -- 06/02/252124 -- 91 -- -- 06/02/252120 -- 96 -- -- 06/02/252119 -- 93 -- 138/88 06/02/252114 -- 95 -- -- 06/02/252109 -- 93 -- -- 06/02/252104 -- 91 -- -- 06/02/252099 -- 91 -- -- 06/02/252054 -- 91 -- -- 06/02/252049 -- 89 -- -- 06/02/252048 -- 92 20 147/85 06/02/252044 -- 92 -- -- 06/02/252039 -- 86 -- -- 06/02/252034 -- 95 -- -- 06/02/252033 -- 97 -- 161/95 06/02/252017 -- 88 -- 157/79 06/02/252016 -- 93 -- -- 06/02/25 2015 -- 98 -- -- 06/02/252009 -- 84 -- -- 06/02/25 2005 -- 86 -- -- 06/02/252001 -- 87 -- 155/85 06/02/251999 -- 84 -- -- 06/02/251954 -- 89 -- -- 06/02/251949 -- 90 -- -- 06/02/251946 98.7 ??F (37.1 ??C) 95 20 156/85 06/02/251944 -- 91 -- -- 06/02/251939 -- 86 -- -- 06/02/251934 -- 86 -- -- 06/02/251930 -- 87 -- 160/86 EFM: 125bpm baseline, moderate variability, reactive, no obvious decels, broken strip - discussed with RN Rosser: irritable Cervical Exam Dilation (cm): 1.5 Effacement: 50 Station: -3 Assessment: 24 year old @ 34w5d IOL for severe PreE - Cervix: as above, last checked by Dr. Yusuf - Membranes intact - GBS collected, intrapartum PCN for ppx - Desires epidural - S/p cyto x1 - Cook placed @ 0200 Plan: - Pt currently very uncomfortable. Will order IV fentanyl 1x dose. Discussed can get early epiduralif desires. - Once more comfortable, will get FHTs on EFM and then place cyto #2 if reassuring PreE w/ SF - BP MR, CTM - Asymptomatic - PIH labs (06/02): P/C 1.42, Cr 0.59, ALT/AST 03/28, Plt 223 Plan: - Continue Mg for seizure ppx - ANCS 06/02- @ 1710 - Continue Nifed 30qhs (06/02) Stacie Liao MD 06/03/2025 2:17 AM * Stacie Liao MD - 06/02/2025 9:40 PM CDT PGY3 Prog Note Cytotec #1 placed vaginally by RN. Stacie Liao MD 06/03/2025 9:40PM * Samia Gutierrez RN - 06/02/2025 7:53 PM CDT Problem: Maternal and Safety Goal: Maternal & status throughout the labor & delivery process is maintained within expected range. Outcome: Progressing Problem: Emotional Well-Being Goal: Participates in decision-making Outcome: Progressing Goal: Verbalizes coping strategies Outcome: Progressing Goal: Patient/Support person will have all essential information communicated in language they can understand Outcome: Progressing Goal: Care delivered is culturally relevant Outcome: Progressing Goal: Parent- bonding occurs Description: As evidenced by: A. Eye contact B. Holding close C. Frequently touching Outcome: Progressing Problem: Pain/Discomfort Goal: Patient exhibits reduced pain/discomfort as evidenced by pain scores Outcome: Progressing Goal: Patient uses pharmacological and non-pharmacological pain management strategies. Outcome: Progressing Goal: Patient verbalizes acceptable level of pain relief and ability to engage in desired activity. 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 Outcome: Progressing Goal: Serum Magnesium Level is within Therapeutic Level Outcome: Progressing Problem: Respiratory Status Description: High risk for altered respiratory function: Decreased related to excessive fluid volume (pulmonary edema). Goal: Vital Signs are medically acceptable Outcome: Progressing Problem: High Risk for Hepatic Injury Goal: Signs/Symptoms of Hepatic Injury are Avoided Description: No signs or symptoms of hepatic injury or rupture are observed. Outcome: Progressing Goal: Jaundice is Documented Outcome: Progressing Goal: Normal or Improving Liver Function Studies Outcome: Progressing Problem: High Risk for Impaired Well Being Goal: Viable is Safely Delivered Outcome: Progressing Problem: Anxiety and Fear Description: Anxiety and fear related to risk of harm to self and fetus. Goal: Anxiety is at manageable level Outcome: Progressing Goal: Verbalizes Understanding of Disease Process and Treatment Outcome: Progressing Goal: Family Members Act as Support System Outcome: Progressing documented in this encounter Plan of Treatment Upcoming Encounters Date Type Department Care Team (Late st Contact Info) Description 06/04/2025 9:45 AM CDT Hospital Encounter [facility] [address] [place] [id number] Pending Results Name Type Priority Associated Diagnoses Date /Time CULTURE STREP B Microbiology Routine 025 8:32 PM CDT Scheduled Orders Name Type Priority Associated Diagnoses Order Schedule OXYGEN WITHOUT TITRATION (ADULT) Respiratory Care Routine NEEDED unt il discontinued starting 06/02/2025 INTRAUTERINE PRESSURE CATHETER OB Routine ONCE for 1 Occurrences starting 06/02/2025 until 06/02/2025 SCALP ELECTRODE OB Routine NEEDED until discontinued starting 06/02/2025 CULTURE STREP B Microbiology Routine ONCE fo r 1 Occurrences starting 06/02/2025 until 06/02/2025 OXYGEN WITHOUT TITRATION (ADULT) Respiratory Care Routine NEEDED unt il discontinued starting 06/03/2025 documented as of this encounter Procedures * The patient is currently admitted. The information in this section might not be complete until the patient is discharged. Procedure Name Priority Date/Time Associated Diagnosis Comments PROTEIN CREATININE RATIO URINE RANDOM PNL STAT 06/02/2025 9:43 PM CDT BLOOD TYPE VERIFICATION Routine 06/02/2025 8:57 PM CDT SYPHILIS ANTIBODY CASCADING REFLEX STAT 06/02/2025 8:31 PM CDT TYPE + SCREEN PANEL STAT 06/02/2025 8 :31 PM CDT CBC W AUTO DIFFERENTIAL STAT 06/02/2025 8:31 PM CDT COMPREHENSIVE METABOLIC PANEL STAT 06/02/2025 8:31 PM CDT documented in this encounter Results * (ABNORMAL) PROTEIN CREATININE RATIO URINE RANDOM PNL (06/02/2025 9:43 PM CDT) Protein Urine 177.6(H) <11.9 mg/dL 06/02/2025 10:12 PM CDT [facility] Creatinine Urine 124.67 mg/dL 06/02/2025 10:12 PM CDT [facility] Protein/Creatin ine Ratio Urine 1.42 06/02/2025 10:12 PM CDT [facility] Urine URINE SPECIMEN OBTAINED BY CLEAN CATCH PROCEDURE / Unknown Collection / Unknown 06/02/2025 9:43 PM CDT 06/02/2025 9:55 PM CDT us Mervat Veliz MD LAB - URINE [place] DA[place] ORDERABLES Final Result Performing Organization Address City/[facility]/ZIP Co de Phone Number [facility] [address] [place] [address] * BLOOD TYPE VERIFICATION (06/02/2025 8:57 PM CDT) ABO Rh B POS 06/02/2025 9:3 5 PM CDT [facility] Blood Bank BLOOD SPECIMEN / Unknown Venipuncture / Unknown 06/02/2025 8:57 PM CDT 06/02/2025 9:04 PM CDT us Mervat Veliz MD LAB - BLOOD BAN K ORDERABLES Final Result Performing Organization Address [facility] Co de Phone Number [facility] [address] [place] [address] * (ABNORMAL) COMPREHENSIVE METABOLIC PANEL (06/02/2025 8:31 PM CDT) Glucose 86 70 - 99 mg/dL 06/02/2025 9:09 PM CDT [facility] Sodium 138 136 - 145 mmol/L 06/02/2025 9:09 PM CDT [facility] Potassium 4.1 3.5 - 5.1 mmol/L 06/02/2025 9:09 PM CDT [facility] Chloride 110(H) 98 - 107 mmol/L 06/02/2025 9:09 PM CDT [facility] CO2 18(L) 22 - 29 mmol/L 06/02/2025 9:09 PM CDT [facility] Calcium 8.6 8.4 - 10.4 mg/dL 06/02/2025 9:09 PM CDT [facility] Anion Gap 10 6 - 16 mmol/L 06/02/2025 9:09 PM CDT [facility] BUN 7 5.3 - 18.7 mg/dL 06/02/2025 9:09 PM CDT [facility] Creatinine 0.59 0.57 - 1.11 mg/dL 06/02/2025 9:09 PM CDT [facility] Alkaline Phosphatase 82 40 - 150 U/L 06/02/2025 9:09 PM CDT [facility] ALT 7 6 - 57 U/L 06/02/2025 9:09 PM CDT [facility] AST 18 10 - 48 U/L 06/02/2025 9:09 PM [facility] Protein Total 5.8(L) 6.4 - 8.3 gm/dL 06/02/2025 9:09 PM T [facility] Albumin 2.9(L) 3.1 - 4.5 gm/dL 06/02/2025 9:09 PM T [facility] Bilirubin Total 0.2 0.2 - 1.2 mg/dL 06/02/2025 9:09 PM [facility] eGFR by CKD-EPI >90 >=90 mL/min/1.7 3 m2 06/02/2025 9:09 PM T [facility] Comment:Estimated Glomerular Filtration Rate (eGFR) calculated using the CKD-EPI Creatinine Equation (2020), per the National Kidney Foundation and [place] [employer]ph[employer] recommendations. Blood BLOOD SPECIMEN / Unknown Venipuncture / Unknown 06/02/2025 8:31 PM CDT 06/02/2025 8:43 PM CDT us Mervat Veliz MD LAB - CHEMISTRY ORDERABLES Final Result [facility] [address] [place] [address] * SYPHILIS ANTIBODY CASCADING REFLEX (06/02/2025 8:31 PM CDT) Treponema pallidum Antibody Non Reactive Non Reactive 06/02/2025 9:28 PM CDT [facility] Comment: No Laboratory evidence of syphilis infection. Note: Circulating antibodies may be low or undetectable in early infection. If recent exposure is suspected, re-draw sample in 2-4 weeks and repeat testing. Blood BLOOD SPECIMEN / Unknown Venipuncture / Unknown 06/02/2025 8:31 PM CDT 06/02/2025 8:43 PM CDT us Mervat Veliz MD LAB - SEROLOGY ORDERABLES Final Result [facility] [address] [place] [address] * (ABNORMAL) CBC W AUTO DIFFERENTIAL (06/02/2025 8:31 PM CDT) WBC 13.6(H) 4.0 - 10.7 x10E9/L 06/02/2025 8:52 PM CDT [facility] RBC Count 4.03 3.90 - 5.20 x10E12/L 06/02/2025 8:52 PM CDT [facility] Hemoglobin 11.9 11.9 - 15.8 g/dL 06/02/2025 8:52 PM CDT [facility] Hematocrit 35.2 34.8 - 46.1 % 06/02/2025 8:52 PM CDT [facility] MCV 87.3 80.0 - 98.0 fL 06/02/2025 8:52 PM CDT [facility] MCH 29.5 26.7 - 33.6 pg 06/02/2025 8:52 PM CDT [facility] MCHC 33.8 31.7 - 36.3 g/dL 06/02/2025 8:52 PM CDT [facility] RDW-CV 13.7 11.3 - 14.8 % 06/02/2025 8:52 PM CDT [facility] Platelet Count 223 150 - 420 x10E9/L 06/02/2025 8:52 PM CDT [facility] MPV 9.8 7.8 - 11.4 fL 06/02/2025 8:52 PM CDT [facility] Neutrophil % 87.9(H) 41.0 - 74.0 % 06/02/2025 8:52 PM CDT [facility] Lymphocyte % 9.2(L) 17.0 - 47.0 % 06/02/2025 8:52 PM CDT [facility] Monocyte % 2.1(L) 3.0 - 11.0 % 06/02/2025 8:52 PM CDT [facility] Eosinophil % 0.2 0.0 - 7.0 % 06/02/2025 8:52 PM CDT [facility] Basophil % 0.2 0.0 - 1.6 % 06/02/2025 8:52 PM CDT [facility] Immature Granulocytes % 0.4 0.0 - 1.0 % 06/02/2025 8:52 PM CDT [facility] Neutrophil Absolute 11.97(H) 1.60 - 7.50 x10E9/L 06/02/2025 8:52 PM CDT [facility] Lymphocyte Absolute 1.25 1.00 - 4.40 x10E9/L 06/02/2025 8:52 PM CDT [facility] Monocyte Absolute 0.28 0.15 - 1.00 x10E9/L 06/02/2025 8:52 PM CDT [facility] Eosinophil Absolute 0.03 0.00 - 0.60 x10E9/L 06/02/2025 8:52 PM CDT [facility] Basophil Absolute 0.03 0.00 - 0.13 x10E9/L 06/02/2025 8:52 PM CDT [facility] Blood BLOOD SPECIMEN / Unknown Venipuncture / Unknown 06/02/2025 8:31 PM CDT 06/02/2025 8:43 PM CDT Mervat Veliz MD LAB - HEMATOLOG Y ORDERABLES Final Result [facility] [address] [place] [address] * TYPE + SCREEN PANEL (06/02/2025 8:31 PM CDT) ABO Rh B POS 06/02/2025 9:22 PM CDT [facility] Comment:No history; collect retype. Antibody Screen NEG 9:22 PM CDT [facility] Blood Bank BLOOD SPECIMEN / Unknown Venipuncture / Unknown 06/02/2025 8:31 PM CDT 06/02/2025 8:43 PM CDT Mervat Veliz MD LAB - BLOOD BAN K ORDERABLES Final Result [facility] [address] [place] [address], [facility] [phone] documented in this encounter Visit Diagnoses Diagnosis Encounter for induction of labor (HCC)- Primary Encounter for induction of labor (HCC) Obesity affecting in second trimester, unspecified obesity type (HCC)- Primary 34 weeks gestation of (HCC) state, incidental Encounter for ultrasound to assess growth (HCC) Pre-eclampsia in third trimester (HCC) Mild or unspecified pre-eclampsia, antepartum documented in this encounter Administered Medications Active Administered Medications - up to 3 most recent administrations Medication Order MAR Action Action Date Dose Rate Site 0.9% NaCl injection 1-10 mL 1-10 mL, Intracatheter, PRN, Other, peripheral line flush, Starting on Mon06/02/25 at 1938, Until Discontinued, Flush peripheral IV catheter with 1-10 mL of normal saline before and after medications and prn to clear blood from the line or to verify patency. 0.9% NaCl injection 3 mL 3 mL, Intracatheter, EVERY 8 HOURS, First dose on Mon06/02/25 at 2200, Until Discontinued, Flush peripheral IV catheter with 3 mL of normal saline every 8 hours. betamethasone acet & sod phos (Celestone) injection 12 mg 12 mg, Intramuscular, ONCE, 1 dose, On Mon06/03/25 at 1715, Protect from light. dextrose 5 % and lactated ringers infusion at 0-150 mL/hr, Intravenous, CONTINUOUS PRN, hypoglycemia, Starting on Mon06/03/25 at 0332, Until Discontinued, Start infusion as instructed by provider. Infuse until risk of hypoglycemia is gone. $ New Bag/Syringe 06/03/2025 3:56 AM CDT 75 mL/hr fentaNYL 2 mcg/ml and ROPivacaine 0.2% in 0.9% nacl epidural at 12 mL/hr, Epidural, CONTINUOUS, Starting on Mon06/03/25 at 0330, Until Discontinued, Demand Dose: 5 mL Lock out: 15 minutes 1 hour limit: 30 mL $ New Bag/Syringe 06/03/2025 3:17 AM CDT 10 mL/hr 10 mL/hr insulin regular human (MyXRedlin) 100 units in 100 mL premix OB infusion 0.5-30 Units/hr (0.5-30 mL/hr), Intravenous, CONTINUOUS, Starting on Mon06/03/25 at 0415, Until Discontinued, O.B. I.V. INSULIN PROTOCOL Fill the entire IV tubing with the insulin solution and allow to sit for 30 minutes if possible. Prior to starting the drip, flush the tubing with 20 ml of the insulin solution. Start IV insulin per pump at Rate/Dose: 0 units/hr then adjust insulin infusion rate based upon FSBG according to the below Algorithm: Less than 70 mg/dl discontinue infusion & notify physician. Recheck FSBG in 20-30 minutes. Less than 70 zero units/hr 70 - 110 mg/dl 0.75 units/hr 111 - 120 mg/dl 1.25 units/hr 121 - 130 mg/dl 1.75 units/hr 131 - 140 mg/dl 2.25 units/hr 141 - 150 mg/dl 2.75 units/hr 151 - 160 mg/dl 3.25 units/hr 161 - 170 mg/dl 3.75 units/hr 171 - 180 mg/dl 4.25 units/hr 181 - 190 mg/dl 4.75 units/hr 191 - 200 mg/dl 5.25 units/hr 201 - 210 mg/dl 5.75 units/hr 211 - 220 mg/dl 6.25 units/hr 221 - 230 mg/dl 6.75 units/hr 231 - 240 mg/dl 7.25 units/hr 241 - 250 mg/dl 7.75 units/hr Greater than 250 mg/dl start 7 units/hr, check with physician for additional dose order. IF PATIENT IS EATING MEALS - Obtain ac FSBG - Multiply rate indicated by the above algorithm X 3 - At meal start, set this RATE into the pump to cover the meal. . WASTE DISPOSAL INSTRUCTIONS: Black Bin Disposal required. $ New Bag/Syringe 06/03/2025 8:16 AM CDT 1.75 Units/hr 1.75 mL/hr Rate Change 06/03/2025 7:05 AM CDT 2.25 Units/hr 2.25 mL/h r Rate Change 06/03/2025 6:02 AM CDT 3.25 Units/hr 3.25 mL/h r lactated ringers infusion at 75 mL/hr, Intravenous, CONTINUOUS, Starting on Mon06/02/25 at 2014, Until Mon06/02/26 at 2014, Start IV with 18 gauge angiocath. $ Bolus New Bag 06/03/2025 2:53 AM CDT 999 mL/h r *Current Bag - New Order 06/02/2025 8:06 PM CDT 75 mL/hr magnesium sulfate 20 g in 500 mL infusion 2 g/hr (50 mL/hr), Intravenous, CONTINUOUS, Starting on Mon06/02/25 at 2015, Until Discontinued Current Rate 06/03/2025 4:42 AM CDT 2 g/hr 50 mL/hr $ New Bag/Syringe 06/03/2025 4:01 AM CDT 2 g/hr 50 mL/ hr Restarted 06/02/2025 8:07 PM CDT 2 g/hr 50 mL/hr miSOPROStol (Cytotec) tablet 25 mcg 25 mcg, Vaginal, EVERY 4 HOURS PRN, cervical ripening, Starting on Mon06/02/25 at 2020, Until Discontinued $ Given 06/02/2025 9:40 PM CDT 25 mcg naloxone (Narcan) injection 0.2 mg 0.2 mg, Intravenous, EVERY 5 MIN PRN, Other, For respiratory rate less than 8/min., Starting on Mon06/03/25 at 0257, Until Discontinued, Give 0.2 mg IV every 5 minutes for respirations less than 8 per minute (maximum 2 mg total dose) NIFEdipine CR osmotic 24hr (Procardia-XL) tablet 30 mg 30 mg, Oral, AT BEDTIME, First dose on Mon06/02/25 at 2045, Until Discontinued, Do not crush, chew, or cut in half.Indications:Preeclampsi a $ Given 06/02/2025 9:32 PM CDT 30 mg oxytocin (Pitocin) 30 units in 500 mL 0.9% sodium chloride infusion 0-20 susanne-units/min (0-20 mL/hr), Intravenous, CONTINUOUS, Starting on Mon06/03/25 at 0500, Until Discontinued, Titration Parameters: Standard Dose, Indication: Induction/Augmentation of labor, Initiate infusion at: 2 susanne-units/min, Titrate infusion by: 2 susanne-units/min, Titrate no sooner than every: 30 minutes, To maintain: May increase or decrease infusion to maintain contractions 2-3 minutes apart in the presence of reassuring heart tracing, but not to exceed 5 contractions in 10 minutes or exceed max infusion dose., Decrease Oxytocin rate: May decrease Oxytocin by half current dose in the presence of uterine tachysystole (greater than 5 contractions in 10 minutes) and notify provider. May decrease oxytocin by half current dose at the time of rupture of membranes once verified with provider, Pause Oxytocin infusion: Pause oxytocin immediately for abnormal or indeterminate status, and notify provider. Rate Change 06/03/2025 8:09 AM CDT 8 susanne-units/min 8 mL/hr Rate Change 06/03/2025 5:46 AM CDT 6 susanne-units/min 6 mL/ hr Rate Change 06/03/2025 5:15 AM CDT 4 susanne-units/min 4 mL/ hr penicillin G pot in dextrose IVPB 3 Million Units 50 mL 3 Million Units, at 100 mL/hr, Intravenous, EVERY 4 HOURS, First dose on Mon06/03/25 at 0000, Until Discontinued, Indication for anti-infective therapy: Suspected infection, Site of anti-infective therapy: Other, Other site of infection (free text): GBS Prophylaxis $ New Bag/Syringe 06/03/2025 8:02 AM CDT 3 Million Units 100 mL/hr $ New Bag/Syringe 06/03/2025 4:01 AM CDT 3 Million Units 1 00 mL/hr $ New Bag/Syringe 06/03/2025 12:14 AM CDT 3 Million Units 100 mL/hr Inactive Administered Medications - up to 3 most recent administrations Medication Order MAR Action Action Date Dose Rate Site fentaNYL (PF) (Sublimaze) injection 50 mcg 50 mcg, Intravenous, ONCE, 1 dose, On Mon06/03/25 at 0200, Patient preference for lesser PRN pain meds may be honored when the patient requests a less strong medication, a lower dose, or a less intrusive route of administration when the lesser drug, dose and route have been ordered for the patient. This patient request must be documented in the MAR. If both oral and IV options are ordered for the same pain severity, give oral first unless patient cannot tolerate oral intake. $ Given 06/03/2025 2:10 AM CDT 50 mcg penicillin G potassium 5 Million Units in NaCl IV 0.9 % 100 mL IVPB 5 Million Units, at 200 mL/hr, Intravenous, ONCE, 1 dose, On Mon06/02/25 at 2000, Stability 168 hr refrigerated; 24 hr room temp, Indication for anti-infective therapy: Suspected infection, Site of anti-infective therapy: Other, Other site of infection (free text): GBS Prophylaxis $ New Bag/Syringe 06/02/2025 8:16 PM CDT 5 Million Units 200 mL/hr documented in this encounter Active and Recently Administered Medications Times are shown in CDT. Scheduled Medication Order 06/01/2025 06/02/2025 06/03/2025 0.9% NaCl injection 3 mL(Linked Group 1) 3 mL, Intracatheter, EVERY 8 HOURS, First dose on Mon06/02/25 at 2200, Until Discontinued, Flush peripheral IV catheter with 3 mL of normal saline every 8 hours. 2255 (Not Administered - Provider: Samia Gutierrez RN - Reason: IV Currently Infusing) 0551 (Not Administered - Provider: Samia Gutierrez RN - Reason: IV Currently Infusing)1400 (Due)2200 (Due) betamethasone acet & sod phos (Celestone) injection 12 mg 12 mg, Intramuscular, ONCE, 1 dose, On Mon06/03/25 at 1715, Protect from light. 1715 (Due) fentaNYL (PF) (Sublimaze) injection 50 mcg (COMPLETED) 50 mcg, Intravenous, ONCE, 1 dose, On Mon06/03/25 at 0200, Patient preference for lesser PRN pain meds may be honored when the patient requests a less strong medication, a lower dose, or a less intrusive route of administration when the lesser drug, dose and route have been ordered for the patient. This patient request must be documented in the MAR. If both oral and IV options are ordered for the same pain severity, give oral first unless patient cannot tolerate oral intake. 0210 ($ Given - Provider: Samia Gutierrez RN) NIFEdipine CR osmotic 24hr (Procardia-XL) tablet 30 mg 30 mg, Oral, AT BEDTIME, First dose on Mon06/02/25 at 2045, Until Discontinued, Do not crush, chew, or cut in half. 2131 ($ Given - Provider: Samia Gutierrez RN) 2100 (Due) penicillin G pot in dextrose IVPB 3 Million Units 50 mL(Linked Group 2) 3 Million Units, at 100 mL/hr, Intravenous, EVERY 4 HOURS, First dose on Mon06/03/25 at 0000, Until Discontinued, Indication for anti-infective therapy: Suspected infection, Site of anti-infective therapy: Other, Other site of infection (free text): GBS Prophylaxis 0014 ($ New Bag/Syri nge - Provider: Samia Gutierrez RN)0044 (Stopped - Provider: Samia Gutierrez RN)0401 ($ New Bag/Syringe - Provider: Samia Gutierrez RN)0431 (Stopped - Provider: Samia Gutierrez RN)0802 ($ New Bag/Syringe - Provider: Vania Carter RN)0832 (Due: Stopped - Provider: Vania Carter RN)1200 (Due)1600 (Due)2000 (Due) penicillin G potassium 5 Million Units in NaCl IV 0.9 % 100 mL IVPB (COMPLETED)(Linked Group 2) 5 Million Units, at 200 mL/hr, Intravenous, ONCE, 1 dose, On Mon06/02/25 at 2000, Stability 168 hr refrigerated; 24 hr room temp, Indication for anti-infective therapy: Suspected infection, Site of anti-infective therapy: Other, Other site of infection (free text): GBS Prophylaxis 2015 ($ New Bag/Syringe - Provider: Samia Gutierrez RN)2045 (Stopped - Provider: Samia Gutierrez RN) Continuous Medication Order 06/01/2025 06/02/2025 06/03/2025 fentaNYL 2 mcg/ml and ROPivacaine 0.2% in 0.9% nacl epidural at 12 mL/hr, Epidural, CONTINUOUS, Starting on Mon06/03/25 at 0330, Until Discontinued, Demand Dose: 5 mL Lock out: 15 minutes 1 hour limit: 30 mL 0317 ($ New Bag/Syri nge - Provider: Rhoda Rivero APRN-SUPPLIER MANAGER) insulin regular human (MyXRedlin) 100 units in 100 mL premix OB infusion 0.5-30 Units/hr (0.5-30 mL/hr), Intravenous, CONTINUOUS, Starting on Mon06/03/25 at 0415, Until Discontinued, O.B. I.V. INSULIN PROTOCOL Fill the entire IV tubing with the insulin solution and allow to sit for 30 minutes if possible. Prior to starting the drip, flush the tubing with 20 ml of the insulin solution. Start IV insulin per pump at Rate/Dose: 0 units/hr then adjust insulin infusion rate based upon FSBG according to the below Algorithm: Less than 70 mg/dl discontinue infusion & notify physician. Recheck FSBG in 20-30 minutes. Less than 70 zero units/hr 70 - 110 mg/dl 0.75 units/hr 111 - 120 mg/dl 1.25 units/hr 121 - 130 mg/dl 1.75 units/hr 131 - 140 mg/dl 2.25 units/hr 141 - 150 mg/dl 2.75 units/hr 151 - 160 mg/dl 3.25 units/hr 161 - 170 mg/dl 3.75 units/hr 171 - 180 mg/dl 4.25 units/hr 181 - 190 mg/dl 4.75 units/hr 191 - 200 mg/dl 5.25 units/hr 201 - 210 mg/dl 5.75 units/hr 211 - 220 mg/dl 6.25 units/hr 221 - 230 mg/dl 6.75 units/hr 231 - 240 mg/dl 7.25 units/hr 241 - 250 mg/dl 7.75 units/hr Greater than 250 mg/dl start 7 units/hr, check with physician for additional dose order. IF PATIENT IS EATING MEALS - Obtain ac FSBG - Multiply rate indicated by the above algorithm X 3 - At meal start, set this RATE into the pump to cover the meal. . WASTE DISPOSAL INSTRUCTIONS: Black Bin Disposal required. 0400 ($ New Bag/Syri nge - Provider: Samia Gutierrez RN)0501 (Paused - Provider: Samia Gutierrez, KUSH)0501 (Rate Change - Provider: Samia Gutierrez, KUSH)0551 (Current Rate - Provider: Samia Gutierrez, KUSH)0602 (Rate Change - Provider: Samia Gutierrez, KUSH)0705 (Rate Change - Provider: Samia Gutierrez, KUSH)0816 ($ New Bag/Syringe - Provider: Vania Carter RN) lactated ringers infusion at 75 mL/hr, Intravenous, CONTINUOUS, Starting on Mon06/02/25 at 2014, Until Mon06/02/26 at 2013, Start IV with 18 gauge angiocath. 2005 (*Current Bag - New Order - Provider: Samia Gutierrez RN) 022 (Stopped - Provider: Samia Gutierrez RN)0253 ($ Bolus New Bag - Provider: Samia Gutierrez RN) magnesium sulfate 20 g in 500 mL infusion 2 g/hr (50 mL/hr), Intravenous, CONTINUOUS, Starting on Mon06/02/25 at 2015, Until Discontinued 2006 (Restarted - Provider: Samia Gutierrez RN) 040 ($ New Bag/Syringe - Provider: Samia Gutierrez RN)0442 (Current Rate - Provider: Samia Gutierrez RN) oxytocin (Pitocin) 30 units in 500 mL 0.9% sodium chloride infusion 0-20 susanne-units/min (0-20 mL/hr), Intravenous, CONTINUOUS, Starting on Mon06/03/25 at 0500, Until Discontinued, Titration Parameters: Standard Dose, Indication: Induction/Augmentation of labor, Initiate infusion at: 2 susanne-units/min, Titrate infusion by: 2 susanne-units/min, Titrate no sooner than every: 30 minutes, To maintain: May increase or decrease infusion to maintain contractions 2-3 minutes apart in the presence of reassuring heart tracing, but not to exceed 5 contractions in 10 minutes or exceed max infusion dose., Decrease Oxytocin rate: May decrease Oxytocin by half current dose in the presence of uterine tachysystole (greater than 5 contractions in 10 minutes) and notify provider. May decrease oxytocin by half current dose at the time of rupture of membranes once verified with provider, Pause Oxytocin infusion: Pause oxytocin immediately for abnormal or indeterminate status, and notify provider. 0439 ($ New Bag/Syri nge - Provider: Samia Gutierrez RN)0442 (Current Rate - Provider: Samia Gutierrez RN)0515 (Rate Change - Provider: Samia Gutierrez RN)0546 (Rate Change - Provider: Samia Gutierrez RN)0809 (Rate Change - Provider: Vania Carter RN) PRN Medication Order 06/01/2025 06/02/2025 06/03/2025 0.9% NaCl injection 1-10 mL(Linked Group 1) 1-10 mL, Intracatheter, PRN, Other, peripheral line flush, Starting on Mon06/02/25 at 1938, Until Discontinued, Flush peripheral IV catheter with 1-10 mL of normal saline before and after medications and prn to clear blood from the line or to verify patency. acetaminophen (Tylenol) tablet 650 mg 650 mg, Oral, EVERY 6 HOURS PRN, Mild Pain, Starting on Mon06/02/25 at 1940, Until Discontinued, Patient preference for lesser PRN pain meds may be honored when the patient requests a less strong medication, a lower dose, or a less intrusive route of administration when the lesser drug, dose and route have been ordered for the patient. This patient request must be documented in the MAR. If both oral and IV options are ordered for the same pain severity, give oral first unless patient cannot tolerate oral intake. calcium gluconate 10 % injection 1 g 1 g, Intravenous, PRN, magnesium overdose, Starting on Mon06/02/25 at 1938, Until Discontinued, Watch for signs and symptoms of Magnesium Sulfate toxicity: A) Magnesium Sulfate level greater than 7. B) Absence of reflexes. C) Respirations less than 10-12 per minute. dextrose 10 % IV bolus 12.5 g, at 468.75 mL/hr, Intravenous, PRN, Other, hypoglycemia, Starting on Mon06/03/25 at 0332, Until Discontinued, .......... Moderate Hypoglycemia: With IV Access: Give Dextrose IV, Notify House OB and obtain orders for a D5W containing fluid until risk of hypoglycemia is gone. Recheck BS in 15 min: Repeat treatment if blood sugar less than 60. Severe hypoglycemia - whether or not patient is NPO : If IV access in place: Give Dextrose IV. If Dextrose IV is not available, Glucagon may be given IM or subcutaneously. Notify House [facility] and obtain orders for a D5 containing fluid and continue IV until patient is able to eat. Recheck BS in 15 minutes: Repeat treatment if BS is persistently less than 60 mg/dl. Observe for recurrent hypoglycemia. If none apparent, recheck BS in 1 hour. Once Patient is able to eat (and not NPO), provide meal or snack. dextrose 5 % and lactated ringers infusion at 0-150 mL/hr, Intravenous, CONTINUOUS PRN, hypoglycemia, Starting on Mon06/03/25 at 0332, Until Discontinued, Start infusion as instructed by provider. Infuse until risk of hypoglycemia is gone. 0356 ($ New Bag/Syringe - Provider: Samia Gutierrez, RN) glucagon (Glucagen) injection 1 mg 1 mg, Intramuscular, PRN, Hypoglycemia, Starting on Mon06/03/25 at 0332, Until Discontinued, .......... Severe hypoglycemia - whether or not patient is NPO : If IV access in place: Give D50 IV. If D50 is not available. Notify House [facility] and obtain orders for a D5 containing fluid and continue IV until patient is able to eat. If no IV access: Give Glucagon IM or Subcutaneously. Restart IV. Notify House OB and obtain orders for a D5 or D10. Recheck BS in 15 minutes: If BS is persistently less than 60 mg/dl. If repeat is persistently low and the patient remains severely hypoglycemic, give D50 Observe for recurrent hypoglycemia. If none apparent, recheck BS in 1 hour. Once Patient is able to eat (and not NPO), provide meal or snack. Reconstitute vial with 1 mL of sterile water for injection for a final concentration of 1 mg/mL; shake vial gently; use immediately and discard unused portion miSOPROStol (Cytotec) tablet 25 mcg 25 mcg, Vaginal, EVERY 4 HOURS PRN, cervical ripening, Starting on Mon06/02/25 at 2020, Until Discontinued 2139 ($ Given - Provider: Samia Gutierrez, RN) naloxone (Narcan) injection 0.2 mg 0.2 mg, Intravenous, EVERY 5 MIN PRN, Other, For respiratory rate less than 8/min., Starting on Mon06/03/25 at 0257, Until Discontinued, Give 0.2 mg IV every 5 minutes for respirations less than 8 per minute (maximum 2 mg total dose) ondansetron (disintegrating) (Zofran ODT) tablet 4 mg 4 mg, Oral, EVERY 6 HOURS PRN, Nausea/Vomiting, Starting on Mon06/02/25 at 1940, Until Discontinued, Dissolved orally on tongue ondansetron (Zofran) injection 4 mg 4 mg, Intravenous, EVERY 6 HOURS PRN, Nausea/Vomiting, Starting on Mon06/02/25 at 1940, Until Discontinued, Administer IV if patient is NPO, actively vomiting, or unable to swallow. oxytocin (Pitocin) 30 units in 500 mL 0.9% sodium chloride infusion 125-1,000 susanne-units/min (125-1,000 mL/hr), Intravenous, CONTINUOUS PRN, , Starting on Mon06/02/25 at 1938, Until Mon06/02/26 at 1937, Infuse first bag POST-DELIVERY at 1,000 susanne-units/min, then decrease rate to 125 susanne-units/min until discontinued. ADMINISTER AFTER THE ANTERIOR SHOULDER OR WITH DELIVERY OF THE PLACENTA. prochlorperazine (Compazine) injection 5 mg 5 mg, Intravenous, EVERY 6 HOURS PRN, Nausea/Vomiting, Starting on Mon06/02/25 at 1940, Until Discontinued, If no relief from ondansetron (ZOFRAN), use prochlorperazine (COMPAZINE) in addition to ondansetron. prochlorperazine (Compazine) injection 5 mg 5 mg, Intramuscular, EVERY 6 HOURS PRN, Nausea/Vomiting, Starting on Mon06/02/25 at 1940, Until Discontinued, If no relief from ondansetron (ZOFRAN), use prochlorperazine (COMPAZINE) in addition to ondansetron. Use IM route if IV is unavailable. terbutaline (Brethine) injection 0.25 mg 0.25 mg, Intravenous, PRN, Intrauterine resuscitation, Starting on Mon06/02/25 at 1938, Until Mon06/02/26 at 1937 tranexamic acid (Cyklokapron) injection 1,000 mg 1,000 mg, Intravenous, ONCE PRN, OB Hemorrhage, 1 dose, Starting on Mon06/02/25 at 193, Until Discontinued, Given by Anesthesia if available otherwise nurse may give IV push over 10 minutes. Linked Groups Order Group 1: SALINE LOCK, INSERT AND MAINTAIN Routine, CONTINUOUS, Starting on Mon06/02/25 at 1945, Until Specified, New collection And 0.9% NaCl injection 3 mLJump to med 3 mL, Intracatheter, EVERY 8 HOURS, First dose on Mon06/02/25 at 2200, Until Discontinued, Flush peripheral IV catheter with 3 mL of normal saline every 8 hours. And 0.9% NaCl injection 1-10 mLJump to med 1-10 mL, Intracatheter, PRN, Other, peripheral line flush, Starting on Mon06/02/25 at 1938, Until Discontinued, Flush peripheral IV catheter with 1-10 mL of normal saline before and after medications and prn to clear blood from the line or to verify patency. Group 2: penicillin G potassium 5 Million Units in NaCl IV 0.9 % 100 mL IVPB (COMPLETED)Jump to med 5 Million Units, at 200 mL/hr, Intravenous, ONCE, 1 dose, On Mon06/02/25 at 2000, Stability 168 hr refrigerated; 24 hr room temp, Indication for anti-infective therapy: Suspected infection, Site of anti-infective therapy: Other, Other site of infection (free text): GBS Prophylaxis Followed by penicillin G pot in dextrose IVPB 3 Million Units 50 mLJump to med 3 Million Units, at 100 mL/hr, Intravenous, EVERY 4 HOURS, First dose on Mon06/03/25 at 0000, Until Discontinued, Indication for anti-infective therapy: Suspected infection, Site of anti-infective therapy: Other, Other site of infection (free text): GBS Prophylaxis documented in this encounter Care Teams Kennel Aide Relationship Specialty Start Date End Date Unknown, Provider PCP - General 03/17/25 documented as of this encounter
--- OUTSIDE RECORDS SUMMARY | 2025-06-03 03:05 | XMS_ITS | Encounter Summary ---
Author Organization [facility] Address [address] [place] [address] Care Team Providers Care Devulcanizer Head Name Role Phone Unknown, Provider Primary Care Provider Unavaila ble Encounter Details Date Type Department Care Team (Late st Contact Info) Description 06/03/2025 3:05 AM CDT Anesthesia Event [facility] 5 LDR [address] [place], [place] [id number] Jalen Crockett MD [address] [facility] [address] [place] [address] Rhoda Rivero, PLAYBACK OPERATOR-RADIO DIVISION OFFICER [address] [place], [place] [id number] Anesthesia Record Procedure Summary Procedure Name Responsible Anesthesiologist Anesthesia Start Time Anesthesia Stop Time EPIDURAL BLOCK Jalen Crockett MD 06/03/25 0305 Events Date Time Event Comment 06/03/2025 0305 An Start 0312 PT Reassessment 0314 Test Dose 0317 Bolus Dose 0321 Electnc Sig This record is electronically signed by the providers listed under staff. 0321 Timeout Anesthesia part icipated in timeout at the time documented in the record by nursing. Meds Name Total lidocaine 2% - epinephrine (PF) 1:200,00 0 injection 9 mL fentaNYL 2 mcg/ml and ROPivacaine 0.2% i n 0.9% nacl epidural 52.61 mL * Agents No agents on file. * Blood No blood administrations on file. Lines, Drains, and Airways Type Details Placement Removal Peripheral IV Date: 06/02/25; Orientation: Right, Posterior; Location: Hand; Gauge: 18 G 06/02/25 0000 by Samia Gutierrez RN Epidural Date: 06/03/25; Time: 323; Placed By: SANTIAGO Tiwari 06/03/25 032 by Rhoda Rivero APRN-CRNA Urethral Catheter 06/03/25; 041; Double lumen/two-way; 10 mL 06/03/25 041 by Samia Gutierrez RN Cervical Ripening Balloon 06/03/25; 0203; dong avila; 80 mL; 80 mL; Well; dong wong; 06/03/25; 0409 06/03/25 0203 by Samia Gutierrez RN 06/03/25 040 by Samia Gutierrez RN documented in this encounter Social History Tobacco Use Types Packs/Day Years Used Date Smoking Tobacco: Never Smokeless Tobacco: Never Alcohol Use Standard Drinks/Week Comments Not Currently 0 (1 standard drink = 0.6 oz pur e alcohol) Overall Financial Resource Strain (CARDIA) Answe r Date Recorded How hard is it for you to pa y for the very basics like food, housing, medical care, and heating? Not hard at all 06/02/2025 [facility] of Occupat ional Health - Occupational Stress [...] any time in the past 12 m [facility], were you homeless or living in a prison (including now)? No 06/02/2025 Estimated Date of Delivery Comme nts Yes 07/10/2025 Based on Patient Reported, Pt had 6 wk ultrasound, requesting record 03/17/25 Sex and Gender Information Value Date Recorded Sex Assigned at Female 06/02/2025 9:07 PM CDT Legal Sex Female 6:45 PM RECTIFICATION PRINTER Gender Identity Not on file Sexual Orientation Not on file documented as of this encounter Functional Status * Is person [...] Waldo Gaines RN documented in this encounter Procedure Notes * Rhoda Rivero APRN-RADIO DIVISION OFFICER - 06/03/2025 3:22 AM CDTAssociated Order(s): Neuraxial Block Neuraxial Block Note Pre-Procedure: Procedure Name: Neuraxial Block Patient Location: OB Indications: labor analgesia and at patient's request Pre-Anesthetic Checklist: Patient identified, IV Checked, Risks and benefits discussed, Surgical consent verified, Monitors and equipment, Site examined, Pre-op evaluation done, Time-out performed, Informed consent obtained, Questions answered/anesthesia questions answered and Allergies reviewed Anticoagulation/ Anti-thrombosis status confirmed? Yes Supplemental O2: room air Monitors: BP, continuous pluse ox and EKG Patient Condition: awake Patient Sedated? No Procedure: Block Type: Epidural Prep: Betadine Sterile Field: mask, cap/hat, sterile established and sterile gloves Approach: midline Epidural Block: Is this procedure for postop pain? No Needle Type: Tuohy Needle gauge: 18 G Needle length: 90 mm Placement Site: L3-L4 Number of Attempts: 1 Loss of Resistance: 9.5 air Catheter threaded to (cm): 15 Catheter length at skin (cm): 15 CSF Aspirated from catheter: No Blood Aspirated: No Test Dose: lidocaine 1.5% with 1-200,000 epinephrine 3 mL Test Dose Response: No Epidural Infusion Medications: Bupivacaine: 0.125% with 2mcg/ml Fentanyl started at, Degree of difficulty: none Procedure Tolerance: tolerated well Sensory Level: T10 Motor Blockade: No Position post procedure: head of bed elevated 30 degrees, left uterine displacement Vital Signs: Vital signs monitored and stable throughout. See anesthesia record for details., Vitalsigns moniitored and stable throughout. See nursing vitals flowsheet for details., heart tones monitored and stable throughout. Staff: Anesthesia Provider: Rhoda Rivero APRN-CRNA - performed the procedure Additional Notes: Pt understands indications and complications of epidural placement. Pt and familyin room had no further questions about epidural placement before procedure start. Pt coached through all steps of epidural placement and tolerated the procedure well. Good MONA felt and epidural placed through 18g tuohy needle without pain or parasthesia. Pt indicated test dose negative of circumoral numbness, tinnitus, or increased heart rate/ blood pressure at time noted. documented in this encounter Plan of Treatment Upcoming Encounters Date Type Department Care Team (Late st Contact Info) Description 06/04/2025 9:45 AM CDT Hospital Encounter [facility] Maternal & Care [address] [place] [id number] documented as of this encounter Procedures Procedure Name Priority Date/Time Associated Diagnosis Comments NEURAXIAL BLOCK Routine 06/03/2025 3:22 AM CDT documented in this encounter Results * EPIDURAL BLOCK PERF (06/03/2025 3:22 AM CDT) Narrative Rhoda Rivero APRN-CRNA - 06/03/2025 3:22 AM CDT Rhoda Rivero APRN-CRNA 06/03/2025 3:24 AM Neuraxial Block Note Pre-Procedure: Procedure Name: Neuraxial Block Patient Location: OB Indications: labor analgesia and at patient's request Pre-Anesthetic Checklist: Patient identified, IV Checked, Risks and benefits discussed, Surgical consent verified, Monitors and equipment, Site examined, Pre-op evaluation done, Time-out performed, Informed consent obtained, Questions answered/anesthesia questions answered and Allergies reviewed Anticoagulation/ Anti-thrombosis status confirmed? Yes Supplemental O2: room air Monitors: BP, continuous pluse ox and EKG Patient Condition: awake Patient Sedated? No Procedure: Block Type: Epidural Prep: Betadine Sterile Field: mask, cap/hat, sterile established and sterile gloves Approach: midline Epidural Block: Is this procedure for postop pain? No Needle Type: Tuohy Needle gauge: 18 G Needle length: 90 mm Placement Site: L3-L4 Number of Attempts: 1 Loss of Resistance: 9.5 air Catheter threaded to (cm): 15 Catheter length at skin (cm): 15 CSF Aspirated from catheter: No Blood Aspirated: No Test Dose: lidocaine 1.5% with 1-200,000 epinephrine 3 mL Test Dose Response: No Epidural Infusion Medications: Bupivacaine: 0.125% with 2mcg/ml Fentanyl started at, Degree of difficulty: none Procedure Tolerance: tolerated well Sensory Level: T10 Motor Blockade: No Position post procedure: head of bed elevated 30 degrees, left uterine displacement Vital Signs: Vital signs monitored and stable throughout. See anesthesia record for details., Vital signs moniitored and stable throughout. See nursing vitals flowsheet for details., heart tones monitored and stable throughout. Staff: Anesthesia Provider: Rhoda Rivero APRN-CRNA - performed the procedure Additional Notes: Pt understands indications and complications of epidural placement. Pt and family in room had no further questions about epidural placement before procedure start. Pt coached through all steps of epidural placement and tolerated the procedure well. Good MONA felt and epidural placed through 18g tuohy needle without pain or parasthesia. Pt indicated test dose negative of circumoral numbness, tinnitus, or increased heart rate/ blood pressure at time noted. us Jalen Crockett MD GENERAL ANESTHESIA ORDERABL ES Final Result documented in this encounter Visit Diagnoses Not on filedocumented in this encounter Administered Medications Active Administered Medications - up to 3 most recent administrations Medication Order MAR Action Action Date Dose Rate Site fentaNYL 2 mcg/ml and ROPivacaine 0.2% in 0.9% nacl epidural at 12 mL/hr, Epidural, CONTINUOUS, Starting on Mon06/03/25 at 0330, Until Discontinued, Demand Dose: 5 mL Lock out: 15 minutes 1 hour limit: 30 mL $ New Bag/Syringe 06/03/2025 3:17 AM CDT 10 mL/hr 10 mL/hr lidocaine 2% (Xylocaine-MPF) - EPINEPHrine 1:200,000 injection Infiltration, PRN, Starting on Mon06/03/25 at 0314, Until Discontinued, Anesthesia Intra-op $ Given 06/03/2025 3:17 AM CDT 6 mL $ Given 06/03/2025 3:14 AM CDT 3 mL documented in this encounter Care Teams Devulcanizer Head Relationship Specialty Start Date End Date Unknown, Provider PCP - General 03/17/25 documented as of this encounter
--- OUTSIDE RECORDS SUMMARY | 2025-06-03 08:31 | XMS_ITS | Clinical Summary ---
Author Organization [facility] Address [address] [place] [address] Care Team Providers Care Hearth Feeder Name Role Phone Miscellaneous, Not In File [...] age to complete this topic Care Teams Hearth Feeder Relationship Specialty Start Date End Date Miscellaneous, Not In File PCP - General 07/04/24
--- OUTSIDE RECORDS SUMMARY | 2025-06-03 08:32 | XMS_ITS | Clinical Summary ---
Author Organization [facility] Address [address] [place] [address] Phone Care Team Providers Care Assembly Line Upholsterer Name Role Phone Provider, None Primary Care [...] age to complete this topic Care Teams Assembly Line Upholsterer Relationship Specialty Start Date End Date Provider, None [place] PCP - General 01/27/18
--- OUTSIDE RECORDS SUMMARY | 2025-06-03 08:32 | XMS_ITS | Clinical Summary ---
Author Organization [facility] Address [address] [place] [address] Care Team Providers Care Material Control Specialist Name Role Phone Unknown, Provider Primary Care Provider Unavaila ble Source Comments [facility],non-owned Affiliates and Associated Physician Practices is amultiple site organization consisting of ambulatory clinics and hospital sitesin [place], [place], [place] and [place]. This disclosure is being madepursuant to the Care Everywhere program and may not contain all information available regarding this patient. Last updated 18.[facility] Allergies Active Allergy Reactions Criticality Noted Date Comments Latex Rash Medium 03/10/2025 Medications * Be aware that medications may not be up to date on this document. Alwaysverify current medications with the patient. No known medications Active Problems Problem Noted Date Diagnosed Date Encounter for induction of labor 06/02/2025 Estimated Date of Delivery Comme nts Yes 07/10/2025 Based on Patient Reported, Pt had 6 wk ultrasound, requesting record 03/17/25 Encounters Date Type Department Care Team Description 06/03/2025 3:05 AM CDT Anesthesia Event [facility] 5 [address] [place] [address] Jalen Crockett MD Lorusso, Chynna T, BLAST FURNACE KEEPER HELPER-HEALTH POLICY ANALYST 06/02/2025 7:22 PM CDT - Present Hospital Encounter [facility] [address] [place], [place] [phone] Mervat Veliz MD Obstetrics 05/13/2025 1:45 PM CDT - 05/13/2025 11:59 PM CDT Hospital Encounter [facility] [address] [place] [address] [place] [address] Marlo Green MD Discharge Disposition: Home or Self Care 05/13/2025 Travel 04/14/2025 11:12 AM CDT - 04/14/2025 11:59 PM CDT Hospital Encounter [facility] Maternal & Care [address] [place] [address] Chrystal Lipscomb MD Discharge Disposition: Home or Self Care 03/17/2025 10:26 AM CDT - 03/17/2025 11:59 PM CDT Hospital Encounter [facility] Maternal & Care [address] [place] [address] Maeve Degroot MD Discharge Disposition: Home or [...] and heating? Not hard at all 06/02/2025 [facility] [place] of Occupat ional Health - Occupational Stress [...] any time in the past 12 m [facility], were you homeless or living in a snf (including now)? No 06/02/2025 Estimated Date of Delivery Comme nts Yes 07/10/2025 Based on Patient Reported, Pt had 6 wk ultrasound, requesting record 03/17/25 Sex and Gender Information Value Date Recorded Sex Assigned at Female 06/02/2025 9:07 PM CDT Legal Sex Female 6:45 PM FUEL QUALITY TECH Gender Identity Not on file Sexual Orientation [...] Mass Index 40.75 06/03/2025 1:03 AM CDT Plan of Treatment Upcoming Encounters Date Type Department Care Team (Late st Contact Info) Description 06/04/2025 9:45 AM CDT Hospital Encounter [facility] [address] [place], [place] [id number] Health Maintenance Due Date Last Done Comments HPV VACCINE (1 - 3-dose series) 2016 CHLAMYDIA/GONORRHEA SCREENING 2017 MENINGOCOCCAL (Group B) VACCINE SHARED DECISION-MAKING (1 of 2 - Standard) 2017 DTAP/TDAP/TD VACCINES (1 - Tdap) 2020 HEPATITIS B VACCINE (1 of 3 - 19+ 3-dose series) 2020 PAP SMEAR 2022 DEPRESSION SCREENING 09/11/2024 OB-TDAP CURRENT 04/10/2025 01/27/2018 COVID-19 VACCINE (2 - 2024-2 6 season) 2025 12/18/2020 INFLUENZA VACCINE (#1) 2025 07/16/2024 Respiratory Syncytial Virus (RSV) Vaccine Pt: or over 60 yrs (1 - Risk 1-dose series) 05/15/2025 OB-GROUP B STREP SCREEN 06/05/2025 ZOSTER VACCINE (1 of 2) 2051 HEPATITIS C SCREENING Completed 01/01/2025 HIV SCREENING Completed 04/14/2025, 01/01/2025 OB-ONE HOUR GLUCOSE Completed 04/14/2025 HIB VACCINE Aged Out No longer eligi ble based on patient's age to complete this topic MENINGOCOCCAL GROUPS A/C/Y/W VACCINE Aged Out No longer eligible b ased on patient's age to complete this topic PNEUMOCOCCAL VACCINE Aged Out No long er eligible based on patient's age to complete this topic Procedures * The patient is currently admitted. The information in this section might not be complete until the patient is discharged. Procedure Name Priority Date/Time Associated Diagnosis Comments NEURAXIAL BLOCK Routine 06/03/2025 3:22 AM CDT PROTEIN CREATININE RATIO URINE RANDOM PNL STAT 06/02/2025 9:43 PM CDT BLOOD TYPE VERIFICATION Routine 06/02/2025 8:57 PM CDT TYPE + SCREEN PANEL STAT 06/02/2025 8 :31 PM CDT COMPREHENSIVE METABOLIC PANEL STAT 06/02/2025 8:31 PM CDT SYPHILIS ANTIBODY CASCADING REFLEX STAT 06/02/2025 8:31 PM CDT CBC W AUTO DIFFERENTIAL STAT 06/02/2025 8:31 PM CDT SONOGRAM - COMPLETE Routine 05/13/2025 1 :50 [...] (HCC) from Last 3 Months Results * EPIDURAL BLOCK PERF (06/03/2025 3:22 AM CDT) Rhoda Mauro APRN-CRNA - 06/03/2025 3:22 AM CDT Rhoda [...] stable throughout. Staff: Anesthesia Provider: Rhoda Rivero APRN-HEALTH POLICY ANALYST - performed the procedure Additional Notes: Pt [...] heart rate/ blood pressure at time noted. Jalen Crockett MD GENERAL ANESTHESIA ORDERABL ES Final Result * (ABNORMAL) PROTEIN CREATININE RATIO URINE RANDOM PNL (06/02/2025 9:43 PM CDT) Protein Urine 177.6(H) <11.9 mg/dL 06/02/2025 10:12 PM CDT [facility] Creatinine Urine 124.67 mg/dL 06/02/2025 10:12 PM CDT [facility] Protein/Creatin ine Ratio Urine 1.42 06/02/2025 10:12 PM CDT [facility] Urine URINE SPECIMEN OBTAINED BY CLEAN CATCH PROCEDURE / Unknown Collection / Unknown 06/02/2025 9:43 PM CDT 06/02/2025 9:55 PM CDT Mervat Veliz MD LAB - URINE CASPER DANA ORDERABLES Final Result [facility] [address] [place] [address] * BLOOD TYPE VERIFICATION (06/02/2025 8:57 PM CDT) ABO Rh B POS 06/02/2025 9:3 5 PM CDT [facility] Blood Bank BLOOD SPECIMEN / Unknown Venipuncture / Unknown 06/02/2025 8:57 PM CDT 06/02/2025 9:04 PM CDT Mervat Veliz MD LAB - BLOOD BAN K ORDERABLES Final Result Performing Organization Address City/[facility]/ZIP Co de Phone Number [facility] [address] [place] [address] * SYPHILIS ANTIBODY CASCADING REFLEX (06/02/2025 8:31 PM CDT) Treponema pallidum Antibody Non Reactive Non Reactive 06/02/2025 9:28 PM CDT [facility] Comment: No Laboratory evidence of syphilis infection. Note: Circulating antibodies may be low or undetectable in early infection. If recent exposure is suspected, re-draw sample in 2-4 weeks and repeat testing. Blood BLOOD SPECIMEN / Unknown Venipuncture / Unknown 06/02/2025 8:31 PM CDT 06/02/2025 8:43 PM CDT Mervat Veliz MD LAB - SEROLOGY ORDERABLES Final Result Performing Organization Address [facility] Co de Phone Number [facility] [address] [place] [address] * TYPE + SCREEN PANEL (06/02/2025 8:31 PM CDT) ABO Rh B POS 06/02/2025 9:22 PM CDT [facility] Comment:No history; collect retype. Antibody Screen NEG 9:22 PM CDT [facility] Blood Bank BLOOD SPECIMEN / Unknown Venipuncture / Unknown 06/02/2025 8:31 PM CDT 06/02/2025 8:43 PM CDT Mervat Veliz MD LAB - BLOOD BAN K ORDERABLES Final Result [facility] [address] [phone] * (ABNORMAL) CBC W AUTO DIFFERENTIAL (06/02/2025 8:31 PM CDT) [facility] Signature WBC 13.6(H) 4.0 - 10.7 x10E9/L 06/02/2025 8:52 PM CDT [facility] RBC Count 4.03 3.90 - 5.20 x10E12/L 06/02/2025 8:52 PM CDT [facility] Hemoglobin 11.9 11.9 - 15.8 g/dL 06/02/2025 8:52 PM CDT [facility] Hematocrit 35.2 34.8 - 46.1 % 06/02/2025 8:52 PM CDT [facility] MCV 87.3 80.0 - 98.0 fL 06/02/2025 8:52 PM CDT [facility] MCH 29.5 26.7 - 33.6 pg 06/02/2025 8:52 PM CDT [facility] MCHC 33.8 31.7 - 36.3 g/dL 06/02/2025 8:52 PM CDT [facility] RDW-CV 13.7 11.3 - 14.8 % 06/02/2025 8:52 PM CDT [facility] Platelet Count 223 150 - 420 x10E9/L 06/02/2025 8:52 PM CDT [facility] MPV 9.8 7.8 - 11.4 fL 06/02/2025 8:52 PM CDT [facility] Neutrophil % 87.9(H) 41.0 - 74.0 % 06/02/2025 8:52 PM CDT [facility] Lymphocyte % 9.2(L) 17.0 - 47.0 % 06/02/2025 8:52 PM CDT [facility] Monocyte % 2.1(L) 3.0 - 11.0 % 06/02/2025 8:52 PM CDT [facility] Eosinophil % 0.2 0.0 - 7.0 % 06/02/2025 8:52 PM CDT [facility] Basophil % 0.2 0.0 - 1.6 % 06/02/2025 8:52 PM CDT [facility] Immature Granulocytes % 0.4 0.0 - 1.0 % 06/02/2025 8:52 PM CDT [facility] Neutrophil Absolute 11.97(H) 1.60 - 7.50 x10E9/L 06/02/2025 8:52 PM CDT [facility] Lymphocyte Absolute 1.25 1.00 - 4.40 x10E9/L 06/02/2025 8:52 PM CDT [facility] Monocyte Absolute 0.28 0.15 - 1.00 x10E9/L 06/02/2025 8:52 PM CDT [facility] Eosinophil Absolute 0.03 0.00 - 0.60 x10E9/L 06/02/2025 8:52 PM CDT [facility] Basophil Absolute 0.03 0.00 - 0.13 x10E9/L 06/02/2025 8:52 PM CDT [facility] Blood BLOOD SPECIMEN / Unknown Venipuncture / Unknown 06/02/2025 8:31 PM CDT 06/02/2025 8:43 PM CDT us Mervat Veliz MD LAB - HEMATOLOG Y ORDERABLES Final Result [facility] [address] [place] [address] * (ABNORMAL) COMPREHENSIVE METABOLIC PANEL (06/02/2025 8:31 PM CDT) Glucose 86 70 - 99 mg/dL 06/02/2025 9:09 PM CDT [facility] Sodium 138 136 - 145 mmol/L 06/02/2025 9:09 PM CDT [facility] Potassium 4.1 3.5 - 5.1 mmol/L 06/02/2025 9:09 PM CDT [facility] Chloride 110(H) 98 - 107 mmol/L 06/02/2025 9:09 PM CDT [facility] CO2 18(L) 22 - 29 mmol/L 06/02/2025 9:09 PM CDT [facility] Calcium 8.6 8.4 - 10.4 mg/dL 06/02/2025 9:09 PM CDT [facility] Anion Gap 10 6 - 16 mmol/L 06/02/2025 9:09 PM CDT [facility] BUN 7 5.3 - 18.7 mg/dL 06/02/2025 9:09 PM CDT [facility] Creatinine 0.59 0.57 - 1.11 mg/dL 06/02/2025 9:09 PM [facility] Alkaline Phosphatase 82 40 - 150 U/L 06/02/2025 9:09 PM CDT [facility] ALT 7 6 - 57 U/L 06/02/2025 9:09 PM [facility] AST 18 10 - 48 U/L 06/02/2025 9:09 PM [facility] Protein Total 5.8(L) 6.4 - 8.3 gm/dL 06/02/2025 9:09 PM [facility] Albumin 2.9(L) 3.1 - 4.5 gm/dL 06/02/2025 9:09 PM [facility] Bilirubin Total 0.2 0.2 - 1.2 mg/dL 06/02/2025 9:09 PM [facility] eGFR by CKD-EPI >90 >=90 mL/min/1.7 3 m2 06/02/2025 9:09 PM [facility] Comment:Estimated Glomerular Filtration Rate (eGFR) calculated using the CKD-EPI Creatinine Equation (2020), per the National Kidney Foundation and [place] [employer]ph[employer] recommendations. Blood BLOOD SPECIMEN / Unknown Venipuncture / Unknown 06/02/2025 8:31 PM CDT 06/02/2025 8:43 PM CDT us Mervat Veliz MD LAB - CHEMISTRY ORDERABLES Final Result [facility] [address] [place] [address] * Sonogram - Complete (05/13/2025 1:50 PM [...] 4 lb 3 oz EFW by Hadlock ([id number]) appropriate Growth Overview Exam date [place] BPD [...] - BMI of 40.0 or greater Procedures [id number]: US Preg Uterus Follow Up [facility] Mozy PACS Anatomical Region Laterality Modality Other 05/13/2025 1:50 PM CDT R Alberto Ervin MD [facility] ORDERABLES Edited Result - Final from Last 3 Months Insurance [facility] Advance Directives * Full Code (Latest Code Status on File) Date Activated Date Inactivated Comments 06/02/2025 7:41 PM Care Teams Material Control Specialist Relationship Specialty Start Date End Date Unknown, Provider PCP - General 03/17/25
== END 2025-06-02 18:44 | disposition short-term general hospital (02) ==
LOC: ANHOBPP 18:56 → ANHLDR 06-03 08:13
PROVIDERS: Admitting Provider Obstetrics & Gynecology; Visit Provider Obstetrics & Gynecology
DX: O14.13 Severe pre-eclampsia, third trimester (principal); Z3A.34 34 weeks gestation of pregnancy
CPT/HCPCS: 36415; 80053; 81001; 82570; 84156; 84550; 85025; 96372; 96374; 96375; 96376; 99199; G0378; G0379; J0702; J3475